=== PATIENT | female | born 1940 | race Caucasian/White ===

== ENCOUNTER 2016-12-07 16:06 | Emergency (ER) | payer MEDICARE ==
[~2016-12-07 16:06] MED LIST: ASPI-973 PO; ATEN25TA PO; CHOL10008 PO; CYCL10TA9 PO; ERGO500050 PO; GABA-502 PO; KLO1T PO; LEVO137T2 PO; LOVA20TA PO; MULT-1018 PO; NITR0.4T SL; OXYC1TAB24 PO; SERT100T PO; VITA400C64 PO; WARF5TAB7 PO
[2016-12-07 16:20] VITALS: BP 105/70; PULSE 66; RESP 14; O2SAT 95
--- NOTE | 2016-12-07 16:37 | DRSVH ---
PROCEDURE: CT BRAIN WITHOUT CONTRAST ([id number]) INDICATIONS: FALL ON COUMADIN TECHNIQUE: Noncontrast 4.5 mm thick angled axial sections acquired from the foramen magnum to the vertex, with c oronal reformats. COMPARISON: [facility], CT, CT BRAIN WO CON, 09/17/2016, 18:11. [facility], CT, CT BRAIN WO CON, 04/29/2016, 13:35. [facility], CT, CT BRAIN WO CON, 03/23/2016, 14:5 4. FINDINGS: Image quality: Excellent. CSF spaces: Basal cisterns are patent. No extra-axial fluid collections. The ventricles are symmet katelynn in size and shape. Brain: No intracranial bleeds or masses. There is cerebral volume loss for age, with resultant vent ricular and sulcal prominence. There are periventricular and deep white matter chronic small vessel ischemic changes. There is intracranial internal carotid artery atherosclerosis. Skull and face: Calvarium and visualized facial bones appear intact, without suspicious lesions. Sinuses: Visualized sinuses and mastoids are clear. IMPRESSION: No acute intracranial abnormality. Dictated by: Bryant Mckenna M.D. on 12/07/2016 at 16:35 Approved by: Bryant Mckenna M.D. on 12/07/2016 at 16:36
[2016-12-07] MEDS ORDERED: fentaNYL-PF 50 mCg/mL 2 mL Inj IVPUSH ONE (16:45)
[2016-12-07 16:47] LABS: BASOPHILS % (AUTO) 0.5 % (0-3); EOSINOPHILS % (AUTO) 2.7 % (0-5); MONOCYTES % (AUTO) 7.5 % (4-12); Mean Corpuscular Hemoglobin 29.4 pg (27.0-35.0); Mean Corpuscular Volume 90.1 fL (81-100); NEUTROPHILS % (AUTO) 55.2 % (40-74); Platelet Count 235 bil/L (150-400)
[2016-12-07 17:08] LABS: INR 2.49 ratio
--- NOTE | 2016-12-07 17:23 | DRSVH ---
PROCEDURE: CT CERVICAL SPINE WITHOUT CONTRAST ([id number]) INDICATIONS: trauma TECHNIQUE: Noncontrast 3 mm thick sections acquired from the skull base to the T4 level. Sagittal and coronal r eformats were then constructed. For radiation dose reduction, the following was used: automated exp osure control, adjustment of mA and/or kV according to patient size. COMPARISON: [facility], CT, CT CERVICAL SPINE WO CON, 04/29/2016, 13:35. FINDINGS: Image quality: Excellent. Bones: No acute fractures or dislocations. There is a mild superior endplate compression deformity at T3 redemonstrated. There is moderate disk space narrowing at C5-C6 with endplate sclerosis or oste ophytosis. Multilevel facet joint arthropathy is noted throughout the cervical spine. There is modera te degeneration at the atlantoaxial joint. Visualized superior ribs are intact. Soft tissues: Prevertebral soft tissues are normal in thickness. No paravertebral hematomas. No ap ical pneumothoraces. There is aneurysmal dilatation of the visualized ascending thoracic aorta measu ring up to 4.3 cm, similar in size compared to the prior study. IMPRESSION: 1. No acute fracture or subluxation. 2. Multilevel degenerative changes throughout the cervical spine most prominent at C5-C6. 3. Aneurysmal dilatation of the ascending thoracic aorta appears similar to the prior study. Dictated by: Oscar Mendoza M.D. on 12/07/2016 at 17:10 Approved by: Oscar Mendoza M.D. on 12/07/2016 at 17:17
[2016-12-07 17:26] LABS: Magnesium 2.1 mg/dL (1.6-2.6)
--- NOTE | 2016-12-07 17:44 | ED.REPORT ---
HPI-Trauma Multiple Date of Service Dec 07, 2016 ED Provider: Austin Zavala MD 76 year old female with a history of CVA and paroxysmal atrial fibrillation, anticoagulated on warfarin presents to the ER via EMS accompanied by her granddaughter complaining of headache status post syncopal ground level fall while at her appointment with her lead engineer, Dr. Rivera, just prior to arrival. Associated symptoms include nausea and vomiting since the fall. Patient denies any neck pain, or other injuries secondary to the fall. Zofran administered by EMS en route. Nursing Notes Stated Complaint: GLF ON COUMADIN Chief Complaint: Multiple Trauma/Fall Nursing Notes Reviewed: Yes Allergies: Coded Allergies: Sulfa (Sulfonamide Antibiotics) (Verified Allergy, Severe, Rash, 09/01/16) morphine (Verified Allergy, Severe, big red hive, 09/01/16) Scheduled Aspirin (Aspirin) 81 Mg Tablet 81 MG PO DAILY Atenolol (Atenolol) 25 Mg Tablet 12.5 MG PO HS Cholecalciferol (Vitamin D3) (Vitamin D3) 1,000 Unit Tab.chew 1,000 UNIT PO DAILY Clonazepam (Clonazepam) 1 Mg Tab 1 MG PO BID Ergocalciferol (Vitamin D2) (Drisdol) 50,000 Unit Capsule 50,000 UNIT PO Mondays Gabapentin (Gabapentin) 300 Mg Capsule 300 MG PO TID Levothyroxine (Levothyroxine) 137 Mcg Tablet 137 MCG PO HS Lovastatin (Lovastatin) 20 Mg Tablet 20 MG PO HS Multivitamin (Multi Vitamin Daily) 1 Each Tablet 1 EACH PO DAILY Sertraline HCl (Zoloft) 100 Mg Tablet 200 MG PO QAM Vitamin E Mixed (Vitamin E) 400 Unit Capsule 400 UNIT PO DAILY Warfarin Sodium (Warfarin Sodium) 5 Mg Tablet 5 MG PO ,,, Fr, Sa,Jasso Warfarin Sodium (Warfarin Sodium) 5 Mg Tablet 2.5 MG PO Tuesday Warfarin Sodium (Warfarin Sodium) 5 Mg Tablet 5 MG PO DAILY Scheduled PRN Cyclobenzaprine (Cyclobenzaprine) 10 Mg Tablet 10 MG PO TID PRN PRN Spasm Nitroglycerin SL (Nitrostat) 0.4 Mg Tab.subl 0.4 MG SL Q5MIN PRN PRN For Chest Pain oxyCODONE-Acetaminophen 5-325 mg (oxyCODONE-Acetaminophen 5-325 mg) 1 Each Tablet 1 TAB PO Q6H PRN PRN For Pain General Time Seen by Provider: 16:10 Chief Complaint Head pain/injury, Loss of consciousness Hx Obtained From: Patient Arrived By: Ambulance Onset Occurred: Just prior to arrival Symptom Duration: Since onset Caused by: Fall from (Ground level) Location: : Head Quality: Painful Severity: Current: Moderate Severity: Maximum: Moderate Associated with: Reports: Nausea, Vomiting Risk-Trauma Multiple Head CT Imaging Inclusion Criteria: GCS of 14 OR 15 Patient Presents WITH: Loss of Conciousness Non Contrast CT Indicated For: >/= 60 yrs Age Headache Vomiting WITH Loss of Conciousness RF Statements: Risk factors reviewed Janneth Coma Score > Age 5 Eye Opening: Open spontaneously (4) Verbal Response: Oriented (5) Motor Response: Obeys commands (6) Janneth Coma Score: 15 Past Medical History Past Medical History 1. Migraine headaches. 2. Paroxysmal atrial fibrillation on Warfarin 3. Fibromyalgia. 4. Hypertension. 5. Dyslipidemia. 6. History of heart block reported in the past. 7. Panic attacks. 8. Wuw-ihcjcav-eoytxynxu type 2 diabetes. 9. Osteoarthritis. 10. Syncope. 11. Shingles. 12. Basal cell carcinoma. 13. Thyroid cancer status post thyroidectomy. 14. Bilateral hearing loss. 15. T3 anterior compression fracture. 16. Angina 17. TIA Reports: Cancer Past Surgical History 1. Multiple knee surgeries bilaterally including bilateral knee replacement. 2. Status post appendectomy. 3. Status post cholecystectomy. 4. History of volvulus requiring exploratory laparotomy and lysis of adhesions. 5. Status post ventral hernia repair. 6. Status post ORIF of right femur. 7. Bladder nerve stimulator. Reports: Appendectomy, Cholecystectomy Family History Noncontributory Smoking History Never Smoker Social History Alcohol Use: Denies alcohol use Drug Use: Denies drug use Other Social History: Good social support, Local resident Ambulatory Status Independent Review of Systems Constitutional: Denies: Chills, Fever Respiratory: Denies: Non-productive cough, Shortness of breath Cardiovascular: Denies: Chest pain GI: Reports: Vomiting, Denies: Abdominal pain, Nausea Musculoskeletal: Denies: Back pain, Extremity pain, Joint pain, Lumbar pain, Neck pain, Thoracic pain Skin: Denies Diaphoresis Neurologic: Reports: Dizziness, Lightheaded, Syncope Complete sys rev & neg: except as marked. Physical Exam Physical Exam Notes: Initial Vital Signs Vital Signs (First) Date Time Temp Pulse Resp B/P Pulse Ox O2 Delivery O2 Flow Rate FiO2 12/07/16 16:20 36.6 66 14 105/70 95 Room Air Initial VS: Reviewed ENT: Mucous membranes moist, Conjunctiva normal, No scleral icterus Skin: Warm, Dry, No cyanosis Psychiatric: Mood/affect normal, Behavior normal, Normal thought content General/Constitutional: Awake, Alert, Well developed, Well nourished Head / Eyes: Atraumatic, Normocephalic, PERRL, No periorbital swelling, Eyelids NL Neck: Atraumatic, Supple, Full range of motion, No swelling, Non-tender, No midline vertebral tend, No masses, No crepitus, No JVD, No tracheal deviation Respiratory / Chest: Atraumatic, Breath sounds NL, Breath sounds = bilat, No respiratory distress, No rales, No rhonchi, No wheezing, No stridor, No chest tenderness, No chest wall deformity, No crepitus Cardiovascular: Heart rate NL, Regular rhythm, Heart sounds NL, Cap refill not delayed, Peripheral circulation NL Abdomen: Atraumatic, Soft, Non-tender, No guarding, No rebound, No distention Back: Atraumatic, Inspection NL, Non-tender, No midline vertebral tend, No paraspinal tenderness, No CVA tenderness Neurologic: Oriented X3, Speech NL, No motor deficits, No sensory deficits No pronator drift Strength 5/5 upper extremities, bilateral Strength 5/5 lower extremities, bilateral Lower Extremity / Pelvis / MS: Full range of motion, No deformity, Neurologic intact, Vascular intact Bilateral knee replacement scars. Interpretation & Diagnostics Lab Results Interpretation Result Diagram: 12/07/16 1637 12/07/16 1637 Test 12/07/16 16:37 White Blood Count 8.0th/mm3 (3.8-10.1) Red Blood Count 4.73mil/mm3 (3.90-5.20) Hemoglobin 13.9g/dL (12.0-15.6) Hematocrit 42.6% (35.0-46.0) Mean Corpuscular Volume 90.1fL (81-100) Mean Corpuscular Hemoglobin 29.4pg (27.0-35.0) Mean Corpuscular Hemoglobin Concent 32.6% (32.0-37.0) Red Cell Distribution Width 15.2% (12.3-15.4) Platelet Count 235bil/L (150-400) Neutrophils (%) (Auto) 55.2% (40-74) Lymphocytes (%) (Auto) 33.9% (14-46) Monocytes (%) (Auto) 7.5% (4-12) Eosinophils (%) (Auto) 2.7% (0-5) Basophils (%) (Auto) 0.5% (0-3) Prothrombin Time 27.1sec (8.1-12.5) Prothromb Time International Ratio 2.49ratio Sodium Level 139mEq/L (134-144) Potassium Level 4.7mEq/L (3.5-5.2) Chloride Level 102mEq/L (97-108) Carbon Dioxide Level 23mmol/L (18-29) Blood Urea Nitrogen 19mg/dL (8-27) Creatinine 1.02mg/dL (0.57-1.00) Estimat Glomerular Filtration Rate 75mL/min (>59) Glucose Level 94mg/dL (60-99) Calcium Level 8.5mg/dL (8.5-10.1) Magnesium Level 2.1mg/dL (1.6-2.6) Total Bilirubin 0.2mg/dL (0.0-1.2) Aspartate Amino Transf (AST/SGOT) 27U/L (0-50) Alanine Aminotransferase (ALT/SGPT) 20U/L (0-32) Alkaline Phosphatase 91U/L (25-165) Total Protein 6.9g/dL (6.4-8.4) Albumin 4.1g/dL (3.4-5.0) Hold So Top Tube Received (Received) ECG Interpretation ECG Interpretation: Sinus rhythm, rate 62 Left axis deviation No ST segment changes Diffuse T wave flattening When compared to ECG dated 09/17/2016 no acute changes present Time: 17:52 Interpreted by: ED physician CT Head Interpretation IMPRESSION: No acute intracranial abnormality. Dictated by: Bryant Mckenna M.D. on 12/07/2016 at 16:35 Approved by: Bryant Mckenna M.D. on 12/07/2016 at 16:36 Study: Head CT no contrast Interpretation / Wet Read by: Interpret - Radiologist CT C-Spine Interpretation IMPRESSION: 1. No acute fracture or subluxation. 2. Multilevel degenerative changes throughout the cervical spine most prominent at C5-C6. 3. Aneurysmal dilatation of the ascending thoracic aorta appears similar to the prior study. Dictated by: Oscar Mendoza M.D. on 12/07/2016 at 17:10 Approved by: Oscar Mendoza M.D. on 12/07/2016 at 17:17 Study type: CT no contrast Interpretation / Wet Read by: Interpret - Radiologist Re-Eval/Medical Decision Med Decision/Clinical Course In summary, the patient is a 76-year-old female with a history of atrial fibrillation, on Coumadin, who presents to the emergency department after a ground-level fall in the setting of a syncopal event that is suggestive of orthostatic hypotension. Here in the emergency department the patient is afebrile stable vital signs and nonfocal neurologic examination. She has clinically positive orthostatics. She complained of headache and nausea and received Zofran as well as fentanyl. Laboratory studies obtained as below: CBC and CMP unremarkable INR therapeutic at 2.49 CT scan of the head and cervical spine demonstrated no evidence of intracranial hemorrhage or focal bony deformity. Her C-spine was cleared. Serial neurologic assessments remains nonfocal. She reported feeling improved. Orthostatic symptoms resolved after receiving IV fluids. She reported that she had not been eating and drinking as much as she showed it did not eat breakfast prior to her event this morning. She was advised to stand up slowly and carefully and make sure to drink adequate fluids. I am reassured by her workup thus far. I feel that she is appropriate for discharge home. Follow-up and return precautions were reviewed detail with the patient as well as family members and they verbalized understanding and agreeable with the plan. She was discharged in stable condition. Re-Evaluation/Progress : Time of Eval: 17:54 Re-Evaluation/Progress Note: Discussed lab and radiology results and plan to discharge. Patient understands and agrees to the plan. Return precautions given. All other questions addressed. Counseled Regarding: Diagnosis, Lab results, Need for follow-up, When/why to return to ED Discharge & Departure Impression: Primary Impression: Fall from ground level Additional Impressions: Syncope Syncope type: unspecified Qualified Code: R55 - Syncope and collapse Head trauma Encounter type: initial encounter Qualified Code: S09.90XA - Unspecified injury of head, initial encounter Anticoagulated on Coumadin Headache Headache type: unspecified Headache chronicity pattern: unspecified pattern Intractability: not intractable Qualified Code: R51 - Headache Nausea Disposition: Home Discharge Condition All VS Reviewed: Yes Condition: Stable Additional Instructions: Thank you for seeking care at emergency room. Our primary goal today in the ED was to evaluate you for any life-threatening conditions. Your evaluation was reassuring. You should follow-up with your primary doctor this week. You should return to the ED immediately if you develop worsening headache, worsening vomiting, weakness, loss of consciousness, confusion, or any other concerning signs or symptoms. Thank you for letting us partake in your care today. Referrals: Emma Crump (PCP) Nadir Rivera MD Attestation Portions of this note were transcribed by Anais Linda. I, Dr. Zavala, personally performed the history, physical exam and medical decision-making; I reviewed and confirmed the accuracy of the information in the transcribed note. Signed by: Judith Alicia, 12/07/2016 and 18:03 copies to: Emma Crump; Nadir Rivera MD, Beck O MD Dec 07, 2016 17:44 ANAIS LINDA Dec 07, 2016 18:01
[2016-12-07 18:04] VITALS: BP 105/70; PULSE 66; RESP 14; O2SAT 95
== END 2016-12-07 18:05 | disposition home or self-care (01) ==
LOC: SED 16:06 → EDBD 16:06 → SED 18:05
DX: J44.0 Chronic obstructive pulmonary disease with (acute) lower respiratory infection (principal); J18.9 Pneumonia, unspecified organism; J84.10 Pulmonary fibrosis, unspecified; I10 Essential (primary) hypertension; I50.9 Heart failure, unspecified; Z86.718 Personal history of other venous thrombosis and embolism; Z90.49 Acquired absence of other specified parts of digestive tract; Z87.891 Personal history of nicotine dependence; Z79.01 Long term (current) use of anticoagulants
CPT/HCPCS: 36415; 70450; 72125; 80053; 83735; 85025; 85610; 93005; 96365; 96367; 96375; 99291; 99292; G0463; J3010

== ENCOUNTER 2017-03-25 15:50 | Emergency (ER) | payer MEDICARE ==
[~2017-03-25] VITALS: Ht 175.3 cm; Wt 111.4 kg
[2017-03-25 15:54] VITALS: BP 104/73; PULSE 66; RESP 17; O2SAT 96
--- NOTE | 2017-03-25 17:31 | ED.REPORT ---
HPI-General Illness Date of Service March 25, 2017 ED Provider: Austin Zavala MD Pt is a 77 y/o female anticoagulated on Warfarin w/ a hx of paroxysmal A-fib, migraines, HTN, hyperlipidemia, NIDDM, TIA, [place], thyroid CA s/p thyroidectomy presenting to the ED with family c/o generalized weakness onset about 5 days ago. She c/o associated SOB, fatigue, dyspnea on exertion, nausea, vomiting, cold sweats, mild abdominal pain, BRUNSON, diarrhea for 2 months. Her focused complaints after all of these symptoms were reported is generalized weakness and SOB. She has experienced a few falls recently without head injury or change in LOC. Pt denies CP, focal numbness or weakness, dysuria. She was at the urology clinic today and was found to be "mildly hypotensive" and was recommended to come here. There has been no recent change in medications. She denies hx of DVT, PE, recent surgeries, recent periods of immobilization. She lives alone and family reports she is not safe to go home. Nursing Notes Stated Complaint: SOB/DIZZY Chief Complaint: Dysrhythmia/Cardiac Nursing Notes Reviewed: Yes Allergies: Coded Allergies: Sulfa (Sulfonamide Antibiotics) (Verified Allergy, Severe, Rash, 09/01/16) morphine (Verified Allergy, Severe, big red hive, 09/01/16) Scheduled Aspirin (Aspirin) 81 Mg Tablet 81 MG PO DAILY Atenolol (Atenolol) 25 Mg Tablet 12.5 MG PO HS Cholecalciferol (Vitamin D3) (Vitamin D3) 1,000 Unit Tab.chew 1,000 UNIT PO DAILY Clonazepam (Clonazepam) 1 Mg Tab 1 MG PO BID Ergocalciferol (Vitamin D2) (Drisdol) 50,000 Unit Capsule 50,000 UNIT PO Mondays Gabapentin (Gabapentin) 300 Mg Capsule 300 MG PO TID Levothyroxine (Levothyroxine) 137 Mcg Tablet 137 MCG PO HS Lovastatin (Lovastatin) 20 Mg Tablet 20 MG PO HS Multivitamin (Multi Vitamin Daily) 1 Each Tablet 1 EACH PO DAILY Sertraline HCl (Zoloft) 100 Mg Tablet 200 MG PO QAM Vitamin E Mixed (Vitamin E) 400 Unit Capsule 400 UNIT PO DAILY Warfarin Sodium (Warfarin Sodium) 5 Mg Tablet 5 MG PO ,,, Fr, Sa,Jasso Warfarin Sodium (Warfarin Sodium) 5 Mg Tablet 2.5 MG PO Tuesday Warfarin Sodium (Warfarin Sodium) 5 Mg Tablet 5 MG PO DAILY Scheduled PRN Cyclobenzaprine (Cyclobenzaprine) 10 Mg Tablet 10 MG PO TID PRN PRN Spasm Nitroglycerin SL (Nitrostat) 0.4 Mg Tab.subl 0.4 MG SL Q5MIN PRN PRN For Chest Pain oxyCODONE-Acetaminophen 5-325 mg (oxyCODONE-Acetaminophen 5-325 mg) 1 Each Tablet 1 TAB PO Q6H PRN PRN For Pain General Time Seen by MD: 17:28 Chief Complaint Multip medical complaints Hx Obtained From: Patient Arrived By: Walk-in Sudden in Onset?: No Onset Occurred: 5 days ago Symptom Duration: Since onset Location: : Abdomen: Head Quality: Painful Severity: Current: Mild Severity: Maximum: Mild Similar Sx Previous: No Past Medical History Past Medical History 1. Migraine headaches. 2. Paroxysmal atrial fibrillation on Warfarin 3. Fibromyalgia. 4. Hypertension. 5. Dyslipidemia. 6. History of heart block reported in the past. 7. Panic attacks. 8. Iop-bhhoppy-mdjlmnknh type 2 diabetes. 9. Osteoarthritis. 10. Syncope. 11. Shingles. 12. Basal cell carcinoma. 13. Thyroid cancer status post thyroidectomy. 14. Bilateral hearing loss. 15. T3 anterior compression fracture. 16. Angina 17. TIA 18. Hard of hearing Past Surgical History 1. Multiple knee surgeries bilaterally including bilateral knee replacement. 2. Status post appendectomy. 3. Status post cholecystectomy. 4. History of volvulus requiring exploratory laparotomy and lysis of adhesions. 5. Status post ventral hernia repair. 6. Status post ORIF of right femur. 7. Bladder nerve stimulator. Reports: Appendectomy, Cholecystectomy Family History Noncontributory Smoking History Never Smoker Social History Alcohol Use: Denies alcohol use Drug Use: Denies drug use Other Social History: Good social support, Local resident Ambulatory Status Walker Review of Systems Full Review of Systems Constitutional: Reports: Chills, Fatigue, Denies: Fever Respiratory: Reports: Dyspnea on exertion, Shortness of breath Cardiovascular: Denies: Chest pain GI: Reports: Abdominal pain, Nausea, Vomiting Female: Denies: Dysuria, Urinary frequency Neurologic: Reports: Headache, Denies: Confusion, Focal weakness, Numbness, Slurred speech, Syncope, Unable to speak Complete sys rev & neg: except as marked. Physical Exam Vital Signs Vital Signs Date Time Temp Pulse Resp B/P Pulse Ox O2 Delivery O2 Flow Rate FiO2 03/25/17 18:13 68 17 115/71 96 Room Air 03/25/17 15:54 66 17 104/73 96 Room Air Initial VS: Reviewed, Vital signs normal Head / Eyes: Atraumatic, Normocephalic, PERRL ENT: Mucous membranes moist, Conjunctiva normal, No scleral icterus Neck: Supple, Full range of motion Extremities: Vascular intact, Neuro intact, No swelling, No tenderness Psychiatric: Mood/affect normal, Behavior normal, Normal thought content General/Constitutional: Awake, Alert, No acute distress, Cooperative, Not toxic appearing Hard of hearing Respiratory / Chest: Atraumatic, Breath sounds NL, Breath sounds = bilat, No respiratory distress, No rales, No rhonchi, No wheezing, No retractions, No stridor, No chest tenderness, No chest wall deformity, No crepitus Well healed scar from previous thyroid surgery Cardiovascular: Heart rate NL, Heart sounds NL, No gallop, No murmurs, No rubs , Cap refill not delayed, Peripheral circulation NL Heart Rate / Rhythm: Positive: Irregular rhythm Abdomen: Atraumatic, Soft, Non-tender, No guarding, No rebound, No distention, No palpable mass Neurologic: Oriented X3, Speech NL, No motor deficits, No sensory deficits, CN II - XII intact, Cerebellar NL, Memory NL Interpretation & Diagnostics Lab Results Interpretation Result Diagram: 03/25/17 1750 03/25/17 1750 Test 03/25/17 17:50 03/25/17 19:16 White Blood Count 10.0th/mm3 (3.8-10.1) Red Blood Count 4.87mil/mm3 (3.90-5.20) Hemoglobin 14.5g/dL (12.0-15.6) Hematocrit 43.9% (35.0-46.0) Mean Corpuscular Volume 90.1fL (81-100) Mean Corpuscular Hemoglobin 29.8pg (27.0-35.0) Mean Corpuscular Hemoglobin Concent 33.0% (32.0-37.0) Red Cell Distribution Width 15.6% (12.3-15.4) Platelet Count 270bil/L (150-400) Neutrophils (%) (Auto) 56.1% (40-74) Lymphocytes (%) (Auto) 30.6% (14-46) Monocytes (%) (Auto) 7.7% (4-12) Eosinophils (%) (Auto) 3.4% (0-5) Basophils (%) (Auto) 1.9% (0-3) Prothrombin Time 18.8sec (8.1-12.5) Prothromb Time International Ratio 1.74ratio Sodium Level 137mEq/L (134-144) Potassium Level 4.4mEq/L (3.5-5.2) Chloride Level 97mEq/L (97-108) Carbon Dioxide Level 22mmol/L (18-29) Blood Urea Nitrogen 27mg/dL (8-27) Creatinine 1.09mg/dL (0.57-1.00) Estimat Glomerular Filtration Rate 70mL/min (>59) Glucose Level 116mg/dL (60-99) Calcium Level 9.4mg/dL (8.5-10.1) Magnesium Level 1.9mg/dL (1.6-2.6) Total Bilirubin 0.4mg/dL (0.0-1.2) Aspartate Amino Transf (AST/SGOT) 22U/L (0-50) Alanine Aminotransferase (ALT/SGPT) 14U/L (0-32) Alkaline Phosphatase 103U/L (25-165) Troponin T < 0.010ug/L (0.0-0.011) Total Protein 7.8g/dL (6.4-8.4) Albumin 4.3g/dL (3.4-5.0) Urine Color Yellow (YELLOW) Urine Appearance Clear (CLEAR,HAZY) Urine pH 5.0 (5.0-8.0) Urine Specific [place] 1.025 (1.003-1.035) Urine Protein Negativemg/dL (NEG,TRACE) Urine Glucose (UA) Negativemg/dL (NEGATIVE) Urine Ketones Tracemg/dL (NEGATIVE) Urine Occult Blood Negative (NEGATIVE) Urine Nitrite Negative (NEGATIVE) Urine Bilirubin Negative (NEGATIVE) Urine Urobilinogen Normalmg/dL (NORMAL) Urine Leukocyte Esterase Negative (NEGATIVE) Urine RBC 0-2/hpf (0-2) Urine WBC 0-5/hpf (0-5) Urine Epithelial Cells Many/hpf (NONE-MOD) Urine Crystals None seen (NONE SEEN) Urine Bacteria Few/hpf (NONE-FEW) Urine Hyaline Casts Occasional/lpf (NONE) Urine Granular Casts None seen (NONE SEEN) Urine Waxy Casts None seen (NONE SEEN) Urine Red Blood Cell Casts None seen (NONE SEEN) Urine White Blood Cell Casts None seen (NONE SEEN) Urine Mucus Present (None Seen) Urine Trichomonas None seen (NONE SEEN) Urine Yeast None (NONE SEEN) Urinalysis Comment None Urine Culture Reflexed Not indicated ECG Interpretation ECG Interpretation: Sinus rhythm rate 63 LAD Borderline prolonged VA interval Compared to prior dated 12/07/16, no acute changes present Time: 17:59 Interpreted by: ED physician Normal ECG Interpretation: No acute ischemic changes X-Ray Chest Interpretation Chest Xray Interpretation: IMPRESSION: No acute cardiopulmonary disease process. Dictated by: Soniya Schneider MD, PhD on 03/25/2017 at 18:22 Approved by: Soniya Schneider MD, PhD on 03/25/2017 at 18:23 View: Portable, 1 view Interpretation / Wet Read by: Interpret - Radiologist CT Head Interpretation IMPRESSION: No acute intracranial disease process. Dictated by: Soniya Schneider MD, PhD on 03/25/2017 at 19:55 Approved by: Soniya Schneider MD, PhD on 03/25/2017 at 19:59 Study: Head CT no contrast Interpretation / Wet Read by: Interpret - Radiologist Re-Eval/Medical Decision Med Decision/Clinical Course Pt is a 77 y/o female anticoagulated on Warfarin w/ a hx of paroxysmal A-fib, migraines, HTN, hyperlipidemia, NIDDM, TIA, [place], thyroid CA s/p thyroidectomy presenting to the ED with family c/o generalized weakness onset about 5 days ago. She c/o associated SOB, fatigue, dyspnea on exertion, nausea, vomiting, cold sweats, mild abdominal pain, BRUNSON, diarrhea for 2 months. Her focused complaints after all of these symptoms were reported is generalized weakness and SOB. She has experienced a few falls recently without head injury or change in LOC. Pt denies CP, focal numbness or weakness, dysuria. She was at the urology clinic today and was found to be "mildly hypotensive" and was recommended to come here. There has been no recent change in medications. She denies hx of DVT, PE, recent surgeries, recent periods of immobilization. She lives alone and family reports she is not safe to go home. Here in the emergency department the patient is afebrile stable vital signs and examination as above. Meds given: Zofran, Toradol, Tylenol, IV fluids. Thereafter patient was reevaluated and she reported significant symptom improvement. Labs notable as below: CBC: Unremarkable CMP: Unremarkable Troponin: negative UA: Unremarkable CXR: Obtained, reviewed and interpreted by myself shows no evidence of infiltrates, effusions or pneumothorax. Cardiac and mediastinal silhouette normal. No bony or soft tissue abnormalities. Head CT: No acute intracranial process After evaluation as above the patient reported significant symptom improvement. My initial plan was for admission as I had some concern about the patient's safety at home however after discussing further patient does not want to be admitted and family members will stay at home with the patient to assist her. She has a motorized wheelchair and walker and feels comfortable going home. The cause for the patient's generalized weakness remains unclear. I see no evidence at this time of acute coronary syndrome, urinary tract infection, pneumonia, electrolyte abnormality or other immediately concerning cause. EKG does not demonstrate any acute changes that would account for her symptoms. Patient remains with stable vital signs and in no apparent distress. I feel she is appropriate for outpatient management. Prior to discharge follow-up and return precautions were reviewed in detail with the patient who verbalized understanding and agreement with the plan. The patient was discharged in stable condition. Time of Eval: 20:06 Patient Status: Condition improved, Moderate relief Re-Evaluation/Progress Note: Pt rechecked. Able to eat without nausea or vomiting. Feeling better. The patient's family will stay with her at her home until she is feeling better. Informed pt of plan for treatment. Pt understands and agrees with plan for treatment. F/U instructions and RTER warnings given. All questions addressed. Counseled Regarding: Diagnosis, Lab results, Need for follow-up, When/why to return to ED Discharge & Departure Primary Impression: Generalized weakness Additional Impressions: Fatigue Fatigue type: unspecified Qualified Code: R53.83 - Other fatigue History of thyroid cancer Anticoagulated on Coumadin History of atrial fibrillation Disposition: Home Discharge Condition All VS Reviewed: Yes Condition: Stable Additional Instructions: Thank you for seeking care at the emergency room. It is difficult for us to make definitive diagnoses in the ED but we believe that you are experiencing weakness of uncertain cause. Our primary goal today in the ED was to evaluate you for any life-threatening conditions. Your evaluation was reassuring. Your labs, urine analysis, EKG, chest x-ray, and head CT scan were all normal today. You will be discharged with a prescription for Zofran. Take this as needed for nausea or vomiting. Make sure you stay well hydrated and continue to eat regularly. You should follow-up with your primary doctor on Tuesday. Call to make an appointment. You should return to the ED immediately if you develop fevers, persistent vomiting, shortness of breath, worsening chest pain, lightheadedness, worsening weakness or any other concerning signs or symptoms. Thank you for letting us partake in your care today. Referrals: Emma Crump (PCP) Scribe Attestation Portions of this note were transcribed by Juan Robles. I, Dr. Zavala personally performed the history, physical exam and medical decision-making; I reviewed and confirmed the accuracy of the information in the transcribed note. Signed by Judith Fang, 03/25/17 - 1800 copies to: Emma Crump Beck O MD March 25, 2017 17:31 JUAN ROBLES March 25, 2017 17:56
[2017-03-25 18:04] LABS: BASOPHILS % (AUTO) 1.9 % (0-3); EOSINOPHILS % (AUTO) 3.4 % (0-5); MONOCYTES % (AUTO) 7.7 % (4-12); Mean Corpuscular Hemoglobin 29.8 pg (27.0-35.0); Mean Corpuscular Volume 90.1 fL (81-100); NEUTROPHILS % (AUTO) 56.1 % (40-74); Platelet Count 270 bil/L (150-400)
[2017-03-25 18:13] VITALS: BP 115/71; PULSE 68; RESP 17; O2SAT 96
[2017-03-25 18:24] LABS: TROPONIN T < 0.010 ug/L (0.0-0.011)
--- NOTE | 2017-03-25 18:24 | DRSVH ---
PROCEDURE: X-RAY CHEST ONE VIEW, PORTABLE ([id number]) INDICATIONS: a-fib, weakness TECHNIQUE: One view of the chest was acquired. COMPARISON: [facility], CR, XR CHEST 1VW (PORTABLE), 09/17/2016, 18:01. FINDINGS: Surgical changes and devices: Surgical clips in the thyroid fossa. 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 Lungs and pleura: No pleural effusions or pneumothorax. Lungs are clear. Mediastinum: Mediastinal contours appear normal. Heart size is normal. Bones and chest wall: No suspicious bony lesions. Overlying soft tissues appear unremarkable. IMPRESSION: No acute cardiopulmonary disease process. Dictated by: Soniya Schneider MD, PhD on 03/25/2017 at 18:22 Approved by: Soniya Schneider MD, PhD on 03/25/2017 at 18:23
[2017-03-25 18:34] LABS: Magnesium 1.9 mg/dL (1.6-2.6)
[2017-03-25] MEDS ORDERED: 0.9% Sodium Chloride 1,000 ML IV ONE (18:45)
[2017-03-25] MEDS ORDERED: Ondansetron 2 mg/mL 2 mL Inj IVPUSH ONE (18:45)
[2017-03-25] MEDS ORDERED: Alum-Mag Hydrox-Simeth 30 mL Suspension PO PRN (19:30)
[2017-03-25] MEDS ORDERED: Ondansetron 2 mg/mL 2 mL Inj IVPUSH PRN (19:30)
[2017-03-25 19:44] LABS: APPEARANCE,URINE CLEAR (CLEAR,HAZY); COLOR,URINE YELLOW (YELLOW); OCCULT BLOOD,URINE NEGATIVE (NEGATIVE); UROBILINOGEN,URINE NORMAL (NORMAL)
--- NOTE | 2017-03-25 20:00 | DRSVH ---
PROCEDURE: CT BRAIN WITHOUT CONTRAST ([id number]) INDICATIONS: Acute mental status changes. TECHNIQUE: Noncontrast 4.5 mm thick angled axial sections acquired from the foramen magnum to the vertex, with c oronal reformats. COMPARISON: [facility], CT, BRAIN W/O CONTRAST, 01/16/2012, 13:17. [facility] l, CT, BRAIN W/O CONTRAST, 09/24/2013, 13:35. [facility], CT, CT BRAIN WO CON, 12/07/2016 , 16:27. [facility], CT, CT ANGIO BRAIN AND NECK, 09/01/2016, 14:04. [facility] [place], CT, BRAIN (TPA), 09/01/2016, 9:49. [facility], CT, CT BRAIN WO CON, 04/29/2016, 13: 35. [facility], CT, CT BRAIN WO CON, 03/23/2016, 14:54. [facility], MR, MR B RAIN WO CON, 12/29/2015, 9:07. [facility], CT, BRAIN W/O CONTRAST, 02/19/2015, 6:04. [facility], CT, BRAIN W/O CONTRAST, 02/18/2015, 19:52. FINDINGS: Image quality: Excellent. CSF spaces: Basal cisterns are patent. No extra-axial fluid collections. The ventricles are symmet katelynn in size and shape. Brain: No intracranial bleeds or masses. There is cerebral volume loss for age, with resultant vent ricular and sulcal prominence. There are periventricular and deep white matter chronic small vessel ischemic changes. There is intracranial internal carotid artery and vertebral artery atherosclerosis . Skull and face: Calvarium and visualized facial bones appear intact, without suspicious lesions. Sinuses: Visualized sinuses and mastoids are clear. IMPRESSION: No acute intracranial disease process. Dictated by: Soniya Schneider MD, PhD on 03/25/2017 at 19:55 Approved by: Soniya Schneider MD, PhD on 03/25/2017 at 19:59
[2017-03-25 20:06] LABS: INR 1.74 ratio
[2017-03-25 21:03] VITALS: BP 121/73; PULSE 69; RESP 15; O2SAT 96
== END 2017-03-25 21:05 | disposition home or self-care (01) ==
LOC: SED 15:50
DX: R53.1 Weakness (principal); R53.83 Other fatigue; R06.02 Shortness of breath; R11.2 Nausea with vomiting, unspecified; R10.9 Unspecified abdominal pain; R19.7 Diarrhea, unspecified; I11.9 Hypertensive heart disease without heart failure; E11.59 Type 2 diabetes mellitus with other circulatory complications; I48.0 Paroxysmal atrial fibrillation; I25.2 Old myocardial infarction; M79.7 Fibromyalgia; E78.5 Hyperlipidemia, unspecified; Z86.73 Personal history of transient ischemic attack (TIA), and cerebral infarction without residual deficits; Z85.850 Personal history of malignant neoplasm of thyroid; Z90.49 Acquired absence of other specified parts of digestive tract; Z91.81 History of falling; Z79.01 Long term (current) use of anticoagulants; Z79.82 Long term (current) use of aspirin; Z88.2 Allergy status to sulfonamides; Z88.5 Allergy status to narcotic agent
CPT/HCPCS: 36415; 70450; 71010; 80053; 81000; 83735; 84484; 85025; 85610; 93005; 96374; 96375; 99285; J1885; J2405; J7030

== ENCOUNTER 2017-03-27 12:42 | Emergency (ER) | payer MEDICARE ==
[~2017-03-27] VITALS: Ht 172.7 cm; Wt 110.5 kg
[2017-03-27 12:46] VITALS: BP 109/66; PULSE 62; RESP 20; O2SAT 92
--- NOTE | 2017-03-27 12:57 | ED.REPORT ---
HPI-Chest Pain 40 and Over Date of Service March 27, 2017 ED Provider: Clint Garner MD Pt is a 77 year old female with a hx of afib on Warfarin, implanted heart monitor, angina, and an [place] in August 2016 presenting to the ED via EMS complaining of chest pain/pressure onset at 1030 this morning at rest. Associated symptoms include nausea, vomiting, SOB, and diaphoresis preceding the chest pressure. Pt received Zofran, ASA, Nitro x1 en route with relief. After taking the medications, pt reports a worsening migraine headache and nausea. Pt took Ibuprofen today without relief. Nursing Notes Stated Complaint: CHEST PAIN Chief Complaint: Chest Pain Nursing Notes Reviewed: Yes Allergies: Coded Allergies: Sulfa (Sulfonamide Antibiotics) (Verified Allergy, Severe, Rash, 03/27/17) morphine (Verified Allergy, Severe, big red hive, 03/27/17) Scheduled Aspirin (Aspirin) 81 Mg Tablet 81 MG PO DAILY Atenolol (Atenolol) 25 Mg Tablet 12.5 MG PO HS Cholecalciferol (Vitamin D3) (Vitamin D3) 1,000 Unit Tab.chew 1,000 UNIT PO DAILY Clonazepam (Clonazepam) 1 Mg Tab 1 MG PO BID Ergocalciferol (Vitamin D2) (Drisdol) 50,000 Unit Capsule 50,000 UNIT PO Mondays Gabapentin (Gabapentin) 300 Mg Capsule 300 MG PO TID Levothyroxine (Levothyroxine) 137 Mcg Tablet 137 MCG PO HS Lovastatin (Lovastatin) 20 Mg Tablet 20 MG PO HS Multivitamin (Multi Vitamin Daily) 1 Each Tablet 1 EACH PO DAILY Sertraline HCl (Zoloft) 100 Mg Tablet 200 MG PO QAM Vitamin E Mixed (Vitamin E) 400 Unit Capsule 400 UNIT PO DAILY Warfarin Sodium (Warfarin Sodium) 5 Mg Tablet 5 MG PO ,,, Fr, Sa,Jasso Warfarin Sodium (Warfarin Sodium) 5 Mg Tablet 2.5 MG PO Tuesday Warfarin Sodium (Warfarin Sodium) 5 Mg Tablet 5 MG PO DAILY Scheduled PRN Cyclobenzaprine (Cyclobenzaprine) 10 Mg Tablet 10 MG PO TID PRN PRN Spasm Nitroglycerin SL (Nitrostat) 0.4 Mg Tab.subl 0.4 MG SL Q5MIN PRN PRN For Chest Pain Nitroglycerin SL (Nitroglycerin SL) 0.4 Mg Tab.subl 0.4 MG SL Q5MIN PRN PRN chest pain oxyCODONE-Acetaminophen 5-325 mg (oxyCODONE-Acetaminophen 5-325 mg) 1 Each Tablet 1 TAB PO Q6H PRN PRN For Pain General Time Seen by MD: 12:49 Chief Complaint Chest pain Hx Obtained From: Patient, EMS Arrived By: Ambulance Sudden in Onset?: Yes Onset Occurred: Just prior to arrival Symptom Duration: Since onset Quality: Heaviness Severity: Current: Mild Severity: Maximum: Moderate Recent Healthcare: No recent doctor visit, No recent hospitalization Similar Sx Previous: No Past Medical History Past Medical History 1. Migraine headaches. 2. Paroxysmal atrial fibrillation on Warfarin 3. Fibromyalgia. 4. Hypertension. 5. Dyslipidemia. 6. History of heart block reported in the past. 7. Panic attacks. 8. Vhw-tcstwdw-zglgdfkka type 2 diabetes. 9. Osteoarthritis. 10. Syncope. 11. Shingles. 12. Basal cell carcinoma. 13. Thyroid cancer status post thyroidectomy. 14. Bilateral hearing loss. 15. T3 anterior compression fracture. 16. Angina 17. TIA 18. Hard of hearing Past Surgical History 1. Multiple knee surgeries bilaterally including bilateral knee replacement. 2. Status post appendectomy. 3. Status post cholecystectomy. 4. History of volvulus requiring exploratory laparotomy and lysis of adhesions. 5. Status post ventral hernia repair. 6. Status post ORIF of right femur. 7. Bladder nerve stimulator. Reports: Appendectomy, Cholecystectomy Family History Noncontributory Smoking History Never Smoker Social History Alcohol Use: Denies alcohol use Drug Use: Denies drug use Other Social History: Good social support, Local resident Ambulatory Status Walker Review of Systems Respiratory: Reports: Shortness of breath GI: Reports: Nausea, Vomiting Skin: Reports Diaphoresis Neurologic: Reports: Headache Complete sys rev & neg: except as marked. Physical Exam Initial Vital Signs Vital Signs (First) Date Time Temp Pulse Resp B/P Pulse Ox O2 Delivery O2 Flow Rate FiO2 03/27/17 12:46 36.7 62 20 109/66 92 Room Air Initial VS: Reviewed Head / Eyes: Atraumatic, Normocephalic, PERRL ENT: Mucous membranes moist, Conjunctiva normal, No scleral icterus Neck: Supple, Non-tender, Full range of motion Extremities: Vascular intact, Neuro intact, No swelling, No tenderness Skin: Warm, Dry, No cyanosis Neurologic: Alert, Oriented, Nonfocal Psychiatric: Mood/affect normal, Behavior normal, Normal thought content General/Constitutional: Awake, Alert, Well appearing Respiratory / Chest: Breath sounds NL, Breath sounds = bilat, No respiratory distress, No rales, No rhonchi, No wheezing, No stridor, No chest tenderness Cardiovascular: Heart rate NL, Regular rhythm, Heart sounds NL, No gallop, No murmurs, No rubs Interpretation & Diagnostics Lab Results Interpretation Result Diagram: 03/27/17 1255 03/27/17 1255 Test 03/27/17 12:55 03/27/17 15:41 White Blood Count 8.1th/mm3 (3.8-10.1) Red Blood Count 4.64mil/mm3 (3.90-5.20) Hemoglobin 13.5g/dL (12.0-15.6) Hematocrit 42.1% (35.0-46.0) Mean Corpuscular Volume 90.7fL (81-100) Mean Corpuscular Hemoglobin 29.1pg (27.0-35.0) Mean Corpuscular Hemoglobin Concent 32.1% (32.0-37.0) Red Cell Distribution Width 15.6% (12.3-15.4) Platelet Count 271bil/L (150-400) Neutrophils (%) (Auto) 57.0% (40-74) Lymphocytes (%) (Auto) 31.1% (14-46) Monocytes (%) (Auto) 6.8% (4-12) Eosinophils (%) (Auto) 4.3% (0-5) Basophils (%) (Auto) 0.7% (0-3) Prothrombin Time 13.5sec (8.1-12.5) Prothromb Time International Ratio 1.26ratio Sodium Level 139mEq/L (134-144) Potassium Level 4.6mEq/L (3.5-5.2) Chloride Level 101mEq/L (97-108) Carbon Dioxide Level 23mmol/L (18-29) Blood Urea Nitrogen 26mg/dL (8-27) Creatinine 0.90mg/dL (0.57-1.00) Estimat Glomerular Filtration Rate 87mL/min (>59) Glucose Level 111mg/dL (60-99) Calcium Level 9.4mg/dL (8.5-10.1) Magnesium Level 2.1mg/dL (1.6-2.6) Total Bilirubin 0.3mg/dL (0.0-1.2) Aspartate Amino Transf (AST/SGOT) 21U/L (0-50) Alanine Aminotransferase (ALT/SGPT) 13U/L (0-32) Alkaline Phosphatase 100U/L (25-165) Total Protein 7.7g/dL (6.4-8.4) Albumin 4.1g/dL (3.4-5.0) Troponin T < 0.010ug/L (0.0-0.011) ECG Interpretation ECG Interpretation: No change from 03/25. Prolonged NH interval. Old inferior infarct, no acute ST segment changes. Time: 13:02 Interpreted by: ED physician Normal ECG Interpretation: Normal rate (62), Normal sinus rhythm X-Ray Chest Interpretation Chest Xray Interpretation: IMPRESSION: No acute cardiopulmonary disease process. Dictated by: Soniya Schneider MD, PhD on 03/27/2017 at 13:38 Interpretation / Wet Read by: Interpret - Radiologist Re-Eval/Medical Decision Med Decision/Clinical Course 77-year-old female with a history of coronary disease and angina. Presents today with chest pain lasting greater than 4 hours without EKG changes and without elevation in troponin. Her pain is resolved with nitroglycerin. Additionally she had a headache with features of her typical migraine. This responded well to IV Compazine. Patient would like to go home and given that there is no evidence for an acute coronary event today think this is reasonable. Time of Eval: 13:44 Patient Status: Condition improved Re-Evaluation/Progress Note: Pt chest pain resolved. Time of Eval: 15:21 Patient Status: Condition improved Re-Evaluation/Progress Note: Pt headache improved. Her daughter reports that the pt usually has nitro at home with her for when she has episodes of chest pain, but that recently she lost her nitro. Time of Eval: 16:33 Patient Status: Condition improved Re-Evaluation/Progress Note: Discussed repeat tropinin results and plan for discharge. PT understands and agrees. Counseled Regarding: Diagnosis, Lab results, Need for follow-up, When/why to return to ED Discharge & Departure Primary Impression: Chest pain Chest pain type: precordial pain Qualified Code: R07.2 - Precordial pain Additional Impressions: Migraine headache Migraine type: without aura Intractability: not intractable Subtherapeutic international normalized ratio (INR) Disposition: Home Discharge Condition All VS Reviewed: Yes Condition: Improved Additional Instructions: Your emergency room visit today included interview, examination, labs, chest x ray and EKG. These tests did not show a sign of heart attack. It is felt safe for you to home today and continue previous home medications. We noted an INR today of 1.3, this is lower than desired take an extra 2.5 mg with your usual 5 mg dose tonight and contact primary care tomorrow for follow-up. Return emergency Department for recurrent chest pain or shortness of breath. Referrals: Emma Crump (PCP) Scribe Attestation Portions of this note were transcribed by Cindy Mendoza. I, Dr. Garner personally performed the history, physical exam and medical decision-making; I reviewed and confirmed the accuracy of the information in the transcribed note. Signed by : Judith Post, 03/27/17 at 1644. copies to: Emma Crump Donald L MD March 27, 2017 12:57 CINDY MENDOZA March 27, 2017 13:02
[2017-03-27 13:05] LABS: Mean Corpuscular Hemoglobin 29.1 pg (27.0-35.0); Mean Corpuscular Volume 90.7 fL (81-100)
[2017-03-27 13:06] LABS: BASOPHILS % (AUTO) 0.7 % (0-3); EOSINOPHILS % (AUTO) 4.3 % (0-5); MONOCYTES % (AUTO) 6.8 % (4-12); Platelet Count 271 bil/L (150-400)
[2017-03-27 13:23] LABS: TROPONIN T < 0.010 ug/L (0.0-0.011)
[2017-03-27 13:33] LABS: Magnesium 2.1 mg/dL (1.6-2.6)
--- NOTE | 2017-03-27 13:40 | DRSVH ---
PROCEDURE: X-RAY CHEST ONE VIEW, PORTABLE ([id number]) INDICATIONS: CHEST PAIN TECHNIQUE: One view of the chest was acquired. COMPARISON: None. 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 Surgical clips in the neck base.. Lungs and pleura: No pleural effusions or pneumothorax. Lungs are clear. Mediastinum: Mediastinal contours appear normal. Heart size is normal. Bones and chest wall: No suspicious bony lesions. Overlying soft tissues appear unremarkable. IMPRESSION: No acute cardiopulmonary disease process. Dictated by: Soniya Schneider MD, PhD on 03/27/2017 at 13:38 Approved by: Soniya Schneider MD, PhD on 03/27/2017 at 13:39
[2017-03-27] MEDS ORDERED: 0.9% Sodium Chloride 1,000 ML IV ONE (13:55)
[2017-03-27] MEDS ORDERED: ProchlorPERazine 5 mg/mL 2 mL Inj IVPUSH ONE (13:55)
[2017-03-27 14:31] VITALS: BP 105/60; PULSE 57; RESP 16; O2SAT 93
[2017-03-27 15:33] VITALS: BP 132/68; PULSE 60; RESP 22; O2SAT 95
[2017-03-27 15:33] LABS: INR 1.26 ratio
[2017-03-27] MEDS ORDERED: NITR0.4T6 SL (16:42)
[2017-03-27 16:44] VITALS: BP 123/72; PULSE 53; RESP 16; O2SAT 92
[2017-03-27 16:58] VITALS: BP 123/72; PULSE 53; RESP 16; O2SAT 92
== END 2017-03-27 16:43 | disposition home or self-care (01) ==
LOC: SED 12:42
DX: R07.2 Precordial pain (principal); G43.009 Migraine without aura, not intractable, without status migrainosus; R79.1 Abnormal coagulation profile; I25.2 Old myocardial infarction; I10 Essential (primary) hypertension; E78.5 Hyperlipidemia, unspecified; E11.9 Type 2 diabetes mellitus without complications; Z88.2 Allergy status to sulfonamides; Z88.5 Allergy status to narcotic agent; Z79.82 Long term (current) use of aspirin; Z86.73 Personal history of transient ischemic attack (TIA), and cerebral infarction without residual deficits; Z79.01 Long term (current) use of anticoagulants
CPT/HCPCS: 36415; 71010; 80053; 82948; 83735; 84484; 85025; 85610; 93005; 96361; 96374; 96375; 99285; J0780; J1200; J7030

== ENCOUNTER 2017-05-07 23:30 | Emergency (ER) | payer MEDICARE ==
[~2017-05-07] VITALS: Ht 175.3 cm; Wt 112.7 kg
[~2017-05-07 23:30] MED LIST changes: +NITR0.4T6 SL
[2017-05-07 23:46] VITALS: BP 119/57; PULSE 84; RESP 25; O2SAT 93
[2017-05-07 23:53] VITALS: BP 107/67; PULSE 63
[2017-05-08 00:14] VITALS: BP 120/95; PULSE 89; RESP 27; O2SAT 94
--- NOTE | 2017-05-08 00:24 | ED.REPORT ---
HPI-General Illness Date of Service May 08, 2017 ED Provider: Vahid Clark MD Pt is a 77 year old female with a history of HTN who presents to the ED via EMS after accidentally taking a double dosage of her medications onset prior to arrival. She c/o associated dizziness, lethargy, and slurred speech. She denies any other symptoms. Nursing Notes Stated Complaint: ACCIDENTAL MEDICATION OVERDOSE Chief Complaint: General Complaint Nursing Notes Reviewed: Yes Allergies: Coded Allergies: Sulfa (Sulfonamide Antibiotics) (Verified Allergy, Severe, Rash, 03/27/17) morphine (Verified Allergy, Severe, big red hive, 03/27/17) Scheduled Aspirin (Aspirin) 81 Mg Tablet 81 MG PO DAILY Atenolol (Atenolol) 25 Mg Tablet 12.5 MG PO HS Cholecalciferol (Vitamin D3) (Vitamin D3) 1,000 Unit Tab.chew 1,000 UNIT PO DAILY Clonazepam (Clonazepam) 1 Mg Tab 1 MG PO BID Ergocalciferol (Vitamin D2) (Drisdol) 50,000 Unit Capsule 50,000 UNIT PO Mondays Gabapentin (Gabapentin) 300 Mg Capsule 300 MG PO TID Levothyroxine (Levothyroxine) 137 Mcg Tablet 137 MCG PO HS Lovastatin (Lovastatin) 20 Mg Tablet 20 MG PO HS Multivitamin (Multi Vitamin Daily) 1 Each Tablet 1 EACH PO DAILY Sertraline HCl (Zoloft) 100 Mg Tablet 200 MG PO QAM Vitamin E Mixed (Vitamin E) 400 Unit Capsule 400 UNIT PO DAILY Warfarin Sodium (Warfarin Sodium) 5 Mg Tablet 5 MG PO ,,, , Sa,Jasso Warfarin Sodium (Warfarin Sodium) 5 Mg Tablet 2.5 MG PO Tuesday Warfarin Sodium (Warfarin Sodium) 5 Mg Tablet 5 MG PO DAILY Scheduled PRN Cyclobenzaprine (Cyclobenzaprine) 10 Mg Tablet 10 MG PO TID PRN PRN Spasm Nitroglycerin SL (Nitrostat) 0.4 Mg Tab.subl 0.4 MG SL Q5MIN PRN PRN For Chest Pain Nitroglycerin SL (Nitroglycerin SL) 0.4 Mg Tab.subl 0.4 MG SL Q5MIN PRN PRN chest pain oxyCODONE-Acetaminophen 5-325 mg (oxyCODONE-Acetaminophen 5-325 mg) 1 Each Tablet 1 TAB PO Q6H PRN PRN For Pain General Time Seen by MD: 23:45 Chief Complaint Other (Medication overdose) Hx Obtained From: Patient, EMS Arrived By: Ambulance Sudden in Onset?: Yes Onset Occurred: Just prior to arrival Symptom Duration: Since onset Caused by: Accidental Severity: Current: No pain currently Severity: Maximum: No pain Recent Healthcare: Recent doctor visit Similar Sx Previous: No Past Medical History Past Medical History 1. Migraine headaches. 2. Paroxysmal atrial fibrillation on Warfarin 3. Fibromyalgia. 4. Hypertension. 5. Dyslipidemia. 6. History of heart block reported in the past. 7. Panic attacks. 8. Lgb-cpoaxbf-ejawfxgxm type 2 diabetes. 9. Osteoarthritis. 10. Syncope. 11. Shingles. 12. Basal cell carcinoma. 13. Thyroid cancer status post thyroidectomy. 14. Bilateral hearing loss. 15. T3 anterior compression fracture. 16. Angina 17. TIA 18. Hard of hearing Past Surgical History 1. Multiple knee surgeries bilaterally including bilateral knee replacement. 2. Status post appendectomy. 3. Status post cholecystectomy. 4. History of volvulus requiring exploratory laparotomy and lysis of adhesions. 5. Status post ventral hernia repair. 6. Status post ORIF of right femur. 7. Bladder nerve stimulator. Reports: Appendectomy, Cholecystectomy Family History Noncontributory Smoking History Never Smoker Social History Lives on [facility] by herself. Alcohol Use: Denies alcohol use Drug Use: Denies drug use Other Social History: Good social support, Lives alone, Local resident Ambulatory Status Independent Review of Systems Full Review of Systems Constitutional: Reports: Lethargy, Denies: Fever Respiratory: Denies: Non-productive cough, Shortness of breath Neurologic: Reports: Dizziness, Slurred speech Complete sys rev & neg: except as marked. Physical Exam Vital Signs Vital Signs Date Time Temp Pulse Resp B/P Pulse Ox O2 Delivery O2 Flow Rate FiO2 05/08/17 02:47 36.8 82 18 112/80 94 Room Air 05/08/17 01:33 88 22 106/77 92 Room Air 05/08/17 01:13 84 20 120/75 94 Room Air 05/08/17 00:14 89 27 120/95 94 Room Air 05/07/17 23:53 63 107/67 05/07/17 23:46 36.9 84 25 119/57 93 Room Air Initial VS: Reviewed, Vital signs normal Head / Eyes: Atraumatic, Normocephalic Neck: Supple, Full range of motion Respiratory: Breath sounds normal, Clear to auscultation, No respiratory distress Cardiovascular: Regular rate & rhythm, Heart sounds normal, Intact distal pulses Abdomen / GI: Soft, Non-tender Extremities: Vascular intact, Neuro intact Skin: Warm, Dry, No cyanosis Neurologic: Alert, Oriented, Nonfocal Psychiatric: Mood/affect normal, Behavior normal General/Constitutional: Awake, Alert, Cooperative, Not toxic appearing Interpretation & Diagnostics Lab Results Interpretation Test 05/07/17 23:30 Hold Purple Top Tube Received (Received) Hold Blue Top Tube Received (Received) Hold [place] Top Tube Received (Received) Re-Eval/Medical Decision Med Decision/Clinical Course 77-year-old female who lives alone actually took double dose of her evening medications including atenolol, clonazepam, and warfarin. She was evaluated by the paramedics on scene and they called me and requested guidance. Because she lives alone, because of her age, and because she was already symptomatic with lightheadedness and dizziness it was recommended that she come to the hospital for a brief period of observation. At no time did she show dramatic vital signs alteration. She was not overly sedated, in fact had trouble napping. She was released home, and one of her granddaughters came to get her. It is recommended that she not take her morning clonazepam nor her daily warfarin dose on Tuesday. She should however take her atenolol Tuesday night as she normally would, essentially ignoring the extra dose which does not seem to have had a dramatic affect. Source of Hx: Old records Time of Eval: 02:04 Patient Status: Condition improved Re-Evaluation/Progress Note: Pt rechecked. Pt wants to go home. Informed pt of plan for discharge. Pt understands and agrees with plan for discharge. F/U instructions and RTER warnings given. All questions addressed. Counseled Regarding: Diagnosis, Lab results, Need for follow-up, When/why to return to ED Discharge & Departure Primary Impression: Accidental medication overdose Encounter type: initial encounter Qualified Code: T50.901A - Poisoning by unspecified drugs, medicaments and biological substances, accidental ( unintentional), initial encounter Disposition: Home Discharge Condition All VS Reviewed: Yes Condition: Stable Additional Instructions: It appears that the extra medicines you took tonight will not be dangerous. Do not take any clonazepam in the morning but do take your evening dose Tuesday night. Take your usual evening dose Tuesday night of atenolol. DO NOT TAKE WARFARIN TUESDAY. Referrals: Emma Crump (PCP) Scribe Attestation Portions of this note were transcribed by Alka Ramirez. I, Dr. Clark personally performed the history, physical exam and medical decision-making; I reviewed and confirmed the accuracy of the information in the transcribed note. Signed by: Judith Camilo, 05/08/17 and 01:50. copies to: Emma Crump Howard L MD May 08, 2017 00:24 Alka Argueta May 08, 2017 00:36
[2017-05-08 01:13] VITALS: BP 120/75; PULSE 84; RESP 20; O2SAT 94
[2017-05-08 01:33] VITALS: BP 106/77; PULSE 88; RESP 22; O2SAT 92
[2017-05-08 02:47] VITALS: BP 112/80; PULSE 82; RESP 18; O2SAT 94
== END 2017-05-08 03:16 | disposition home or self-care (01) ==
LOC: SED 23:30
DX: R42 Dizziness and giddiness (principal); R53.83 Other fatigue; R47.81 Slurred speech; T44.7X1A Poisoning by beta-adrenoreceptor antagonists, accidental (unintentional), initial encounter; T42.4X1A Poisoning by benzodiazepines, accidental (unintentional), initial encounter; T45.511A Poisoning by anticoagulants, accidental (unintentional), initial encounter; Y93.89 Activity, other specified; Y92.89 Other specified places as the place of occurrence of the external cause; Y99.8 Other external cause status; I11.9 Hypertensive heart disease without heart failure; E11.59 Type 2 diabetes mellitus with other circulatory complications; I48.0 Paroxysmal atrial fibrillation; G43.909 Migraine, unspecified, not intractable, without status migrainosus; M79.7 Fibromyalgia; E78.5 Hyperlipidemia, unspecified; Z86.73 Personal history of transient ischemic attack (TIA), and cerebral infarction without residual deficits; Z79.82 Long term (current) use of aspirin; Z79.01 Long term (current) use of anticoagulants; Z88.2 Allergy status to sulfonamides; Z88.5 Allergy status to narcotic agent

== ENCOUNTER 2017-05-09 15:00 | Observation (INO) | payer MEDICARE ==
[~2017-05-09] VITALS: Ht 175.3 cm; Wt 112.5 kg
[2017-05-09 15:02] VITALS: BP 100/57; PULSE 54; RESP 18; O2SAT 93
--- NOTE | 2017-05-09 15:29 | ED.REPORT ---
HPI-General Illness Date of Service May 09, 2017 ED Provider: Dr. Goncalves Pt is a 77 year old female with a hx of HTN, DM II and afib on Coumadin presenting to the ED complaining of 9/[address] the way across her chest onset at 1345 today. Associated symptoms include nausea and diaphoresis. Denies fever, chills, vomiting, SOB, abdominal pain, bloody urine, vision changes, headache, dysuria, focal weakness, speech changes, or any other symptoms at this time. Pt saw her PCP today for a routine checkup, but then began having the chest pain just before her appointment. She took a Nitro at home with some relief prior to arrival but the pain is now gradually worsening at a 9/10 and radiates up to her left shoulder and left jaw, and feels more like a soreness. Nursing Notes Stated Complaint: CHEST PAIN Chief Complaint: Chest Pain Nursing Notes Reviewed: Yes Allergies: Coded Allergies: Sulfa (Sulfonamide Antibiotics) (Verified Allergy, Severe, Rash, 03/27/17) morphine (Verified Allergy, Severe, big red hive, 03/27/17) Scheduled Aspirin (Aspirin) 81 Mg Tablet 81 MG PO DAILY Atenolol (Atenolol) 25 Mg Tablet 12.5 MG PO HS Cholecalciferol (Vitamin D3) (Vitamin D3) 1,000 Unit Tab.chew 1,000 UNIT PO DAILY Clonazepam (Clonazepam) 1 Mg Tab 1 MG PO BID Ergocalciferol (Vitamin D2) (Drisdol) 50,000 Unit Capsule 50,000 UNIT PO Mondays Gabapentin (Gabapentin) 300 Mg Capsule 300 MG PO TID Levothyroxine (Levothyroxine) 137 Mcg Tablet 137 MCG PO HS Lovastatin (Lovastatin) 20 Mg Tablet 20 MG PO HS Multivitamin (Multi Vitamin Daily) 1 Each Tablet 1 EACH PO DAILY Sertraline HCl (Zoloft) 100 Mg Tablet 200 MG PO QAM Vitamin E Mixed (Vitamin E) 400 Unit Capsule 400 UNIT PO DAILY Warfarin Sodium (Warfarin Sodium) 5 Mg Tablet 5 MG PO DAILY Scheduled PRN Cyclobenzaprine (Cyclobenzaprine) 10 Mg Tablet 10 MG PO TID PRN PRN Spasm Nitroglycerin SL (Nitrostat) 0.4 Mg Tab.subl 0.4 MG SL Q5MIN PRN PRN For Chest Pain oxyCODONE-Acetaminophen 5-325 mg (oxyCODONE-Acetaminophen 5-325 mg) 1 Each Tablet 1 TAB PO Q6H PRN PRN For Pain General Time Seen by MD: 15:28 Chief Complaint Chest pain Hx Obtained From: Patient Arrived By: Walk-in Sudden in Onset?: Yes Onset Occurred: 1 - 4 hours ago Symptom Duration: Since onset Location: : Chest Quality: Cramping, Painful Radiation: : Arm left (Shoulder and neck) Severity: Current: Pain level 9 out of 10 Severity: Maximum: Pain level 9 out of 10 Recent Healthcare: No recent hospitalization, Recent doctor visit Similar Sx Previous: No Past Medical History Past Medical History 1. Migraine headaches. 2. Paroxysmal atrial fibrillation on Warfarin 3. Fibromyalgia. 4. Hypertension. 5. Dyslipidemia. 6. History of heart block reported in the past. 7. Panic attacks. 8. Vtt-dwfaade-exehxukai type 2 diabetes. 9. Osteoarthritis. 10. Syncope. 11. Shingles. 12. Basal cell carcinoma. 13. Thyroid cancer status post thyroidectomy. 14. Bilateral hearing loss. 15. T3 anterior compression fracture. 16. Angina 17. TIA 18. Hard of hearing Past Surgical History 1. Multiple knee surgeries bilaterally including bilateral knee replacement. 2. Status post appendectomy. 3. Status post cholecystectomy. 4. History of volvulus requiring exploratory laparotomy and lysis of adhesions. 5. Status post ventral hernia repair. 6. Status post ORIF of right femur. 7. Bladder nerve stimulator. Reports: Appendectomy, Cholecystectomy Family History Noncontributory Smoking History Never Smoker Social History Lives on [facility] by herself. Alcohol Use: Denies alcohol use Drug Use: Denies drug use Other Social History: Good social support, Lives alone, Local resident Ambulatory Status Independent Review of Systems Full Review of Systems Constitutional: Denies: Chills, Fever Eyes: Denies: Blurred bilateral Respiratory: Denies: Shortness of breath Cardiovascular: Reports: Chest pain GI: Reports: Nausea, Denies: Abdominal pain, Bloody/tarry stool, Diarrhea, Vomiting Female: Denies: Dysuria, Hematuria Skin: Reports Diaphoresis Neurologic: Denies: Focal weakness, Headache, Slurred speech, Vision change Complete sys rev & neg: except as marked. Physical Exam Nursing note and vitals reviewed. Constitutional: Well-developed, well-nourished. Not diaphoretic. Head: Normocephalic and atraumatic. Mouth/Throat: Oropharynx is clear and moist. No oropharyngeal exudate. Eyes: EOM are normal. Pupils are equal, round, and reactive to light. Neck: Supple, no tracheal deviation. Cardiovascular: Normal rate, regular rhythm. Equal and intact distal pulses throughout. Pulmonary/Chest: Effort normal and breath sounds normal. No respiratory distress. Abdominal: Soft. No distension. There is no tenderness, rebound, or guarding. Bowel sounds present. Musculoskeletal: Range of motion grossly intact, moving all extremities. No peripheral edema or tenderness appreciated. Neurological: AOx3. Grossly nonfocal exam. Strength and sensation intact and equal to bilateral upper and lower extremities. Skin: Warm and dry, no rashes or pallor appreciated. Psychiatric: Appropriate mood and affect. Behavior appears normal. Vital Signs Vital Signs Date Time Temp Pulse Resp B/P Pulse Ox O2 Delivery O2 Flow Rate FiO2 05/09/17 16:37 36.8 56 17 118/76 95 Room Air 05/09/17 15:02 36.8 54 18 100/57 93 Room Air Initial VS: Reviewed Interpretation & Diagnostics Lab Results Interpretation Result Diagram: 05/09/17 1610 05/09/17 1610 Test 05/09/17 16:10 White Blood Count 8.2th/mm3 (3.8-10.1) Red Blood Count 4.51mil/mm3 (3.90-5.20) Hemoglobin 13.3g/dL (12.0-15.6) Hematocrit 41.3% (35.0-46.0) Mean Corpuscular Volume 91.6fL (81-100) Mean Corpuscular Hemoglobin 29.5pg (27.0-35.0) Mean Corpuscular Hemoglobin Concent 32.2% (32.0-37.0) Red Cell Distribution Width 15.2% (12.3-15.4) Platelet Count 233bil/L (150-400) Neutrophils (%) (Auto) 57.6% (40-74) Lymphocytes (%) (Auto) 31.5% (14-46) Monocytes (%) (Auto) 6.7% (4-12) Eosinophils (%) (Auto) 3.5% (0-5) Basophils (%) (Auto) 0.5% (0-3) Prothrombin Time 18.5sec (8.1-12.5) Prothromb Time International Ratio 1.71ratio Activated Partial Thromboplast Time 33.1sec (22.8-33.0) Sodium Level 137mEq/L (134-144) Potassium Level 4.7mEq/L (3.5-5.2) Chloride Level 98mEq/L (97-108) Carbon Dioxide Level 23mmol/L (18-29) Blood Urea Nitrogen 20mg/dL (8-27) Creatinine 0.97mg/dL (0.57-1.00) Estimat Glomerular Filtration Rate 80mL/min (>59) Glucose Level 90mg/dL (60-99) Calcium Level 8.8mg/dL (8.5-10.1) Total Bilirubin 0.3mg/dL (0.0-1.2) Aspartate Amino Transf (AST/SGOT) 23U/L (0-50) Alanine Aminotransferase (ALT/SGPT) 14U/L (0-32) Alkaline Phosphatase 74U/L (25-165) Total Protein 7.2g/dL (6.4-8.4) Albumin 3.9g/dL (3.4-5.0) Hold So Top Tube Received (Received) ECG Interpretation ECG Interpretation: Sinus arrhythmia. No significant change from previous EKG on 03/27/2017. Time: 15:31 Interpreted by: ED physician X-Ray Chest Interpretation Chest Xray Interpretation: IMPRESSION: Stable chest. No acute cardiopulmonary process is evident. Dictated by: Fito Avila M.D. on 05/09/2017 at 15:09 View: Portable, 1 view Interpretation / Wet Read by: Interpret - Radiologist Re-Eval/Medical Decision Med Decision/Clinical Course Chest x ray negative. Initial troponin negative. INR 1.7 subtharapeutic. Rest of labs grossly within normal limits. Not having any chest pain radiating through back. No neuro symptoms. No evidence for dissection at this time. However, her story is concerning for unstable angina given chest pain radiating up to her jaw, persistent, as well as risk factors. She has not had a stress test in several years. Plan admission for further evaluation and management, likely provocative testing, telemetry. Time of Eval: 17:34 Patient Status: Condition improved Re-Evaluation/Progress Note: Discussed plan for admission. Pt understands and agrees with plan. Pt continues to have left sided chest pain radiating toward her jaw. Consultation #1: Referral / Consult Name: Corey Wills Consulted With: Hospitalist Call Returned at: 17:56 Advertising Clerk: Will see patient, Agrees with plan, Accepts admit Consultation #2: Referral / Consult Name: Joseph Elizabeth MD Consulted With: Cardiology Call Returned at: 17:53 Advertising Clerk: Agrees with plan Note: Agrees that pt should be admitted. Counseled Regarding: Diagnosis, Lab results, Need for follow-up, When/why to return to ED Discharge & Departure Primary Impression: Chest pain Chest pain type: unspecified Qualified Code: R07.9 - Chest pain, unspecified Disposition: ADMITTED TO HOSPITAL Discharge Condition All VS Reviewed: Yes Condition: Improved Referrals: Emma Crump (PCP) Nadir Rivera MD Attestation Portions of this note were transcribed by Cindy Mendoza. I, Dr. Goncalves personally performed the history, physical exam and medical decision-making; I reviewed and confirmed the accuracy of the information in the transcribed note. Signed by: Judith Post, 05/09/2017 at 1809. copies to: Emma Crump; Nadir Rivera MD, William B MD May 09, 2017 15:29 CINDY MENDOZA May 09, 2017 15:39 Dilip Goncalves MD May 09, 2017 15:29 CINDY MENDOZA May 09, 2017 15:39
[2017-05-09] MEDS ORDERED: 0.9% Sodium Chloride 1,000 ML IV ONE (15:35)
[2017-05-09] MEDS ORDERED: oxyCODONE-Acetamin 10-325 mg Tablet PO ONE (15:50)
--- NOTE | 2017-05-09 16:11 | DRSVH ---
PROCEDURE: X-RAY CHEST ONE VIEW, PORTABLE ([id number]) INDICATIONS: chest pain TECHNIQUE: One view of the chest was acquired. COMPARISON: [facility], CR, XR CHEST 1VW (PORTABLE), 03/27/2017, 13:08. FINDINGS: Surgical changes and devices: None. Lungs and pleura: No pleural effusions or pneumothorax. Lungs are clear. The aeration of the lungs is similar to the prior study. Mediastinum: Mediastinal contours appear normal. Heart size is normal. There is aortic atheroscler osis. Bones and chest wall: No suspicious bony lesions. Prominent degenerative changes of the mid spine a nd bilateral acromioclavicular joints are present. Overlying soft tissues appear unremarkable. IMPRESSION: Stable chest. No acute cardiopulmonary process is evident. Dictated by: Ftio Avila M.D. on 05/09/2017 at 15:09 Approved by: Fito Avila M.D. on 05/09/2017 at 15:09
[2017-05-09 16:20] LABS: BASOPHILS % (AUTO) 0.5 % (0-3); EOSINOPHILS % (AUTO) 3.5 % (0-5); MONOCYTES % (AUTO) 6.7 % (4-12); Mean Corpuscular Hemoglobin 29.5 pg (27.0-35.0); Mean Corpuscular Volume 91.6 fL (81-100); NEUTROPHILS % (AUTO) 57.6 % (40-74); Platelet Count 233 bil/L (150-400)
[2017-05-09 16:37] VITALS: BP 118/76; PULSE 56; RESP 17; O2SAT 95
[2017-05-09 16:40] LABS: INR 1.71 ratio
[2017-05-09 16:48] LABS: TROPONIN T < 0.010 ug/L (0.0-0.011)
[2017-05-09] MEDS: Lactated Ringer's 1,000 ML IV SCH (18:41)
[2017-05-09 18:50] VITALS: BP 125/85; PULSE 55; RESP 20; O2SAT 92
[2017-05-09 20:10] VITALS: BP 130/92; PULSE 57; PULSE 65; RESP 18; O2SAT 95
[2017-05-09 20:40] LABS: APPEARANCE,URINE CLEAR (CLEAR,HAZY); COLOR,URINE YELLOW (YELLOW); OCCULT BLOOD,URINE NEGATIVE (NEGATIVE); PH,URINE 5.5 (5.0-8.0); UROBILINOGEN,URINE NORMAL (NORMAL)
[2017-05-09] MEDS: 0.9% Sodium Chloride 1,000 ML IV SCH (21:31)
[2017-05-09] MEDS ORDERED: Ondansetron 2 mg/mL 2 mL Inj IVPUSH PRN (21:35)
[2017-05-09] MEDS ORDERED: Polyethylene Glycol (PEG) 17 Gm Powder PO PRN (21:35)
[2017-05-09] MEDS ORDERED: Alum-Mag Hydrox-Simeth 30 mL Suspension PO PRN (21:35)
[2017-05-09] MEDS ORDERED: Atropine 1 mg/10 mL (Code) Syringe IVPUSH PRN (21:35)
[2017-05-09] MEDS ORDERED: Senna-Docusate 8.6-50 mg Tablet PO PRN (21:35)
--- NOTE | 2017-05-09 22:07 | PCM.CONPHA ---
Subjective Date of Service: May 09, 2017 Objective Vital Signs Date Time Temp Pulse Resp B/P Pulse Ox O2 Delivery O2 Flow Rate FiO2 05/09/17 20:10 37.0 65 18 130/92 95 Room Air 05/09/17 20:10 57 05/09/17 18:50 36.8 55 20 125/85 92 Room Air 05/09/17 16:37 36.8 56 17 118/76 95 Room Air 05/09/17 15:02 36.8 54 18 100/57 93 Room Air Weight (Kilograms): 113.700 Height (Feet): 5 Height (Inches): 9.00 Test 05/09/17 16:10 05/09/17 20:10 05/09/17 20:33 White Blood Count 8.2th/mm3 (3.8-10.1) Red Blood Count 4.51mil/mm3 (3.90-5.20) Hemoglobin 13.3g/dL (12.0-15.6) Hematocrit 41.3% (35.0-46.0) Mean Corpuscular Volume 91.6fL (81-100) Mean Corpuscular Hemoglobin 29.5pg (27.0-35.0) Mean Corpuscular Hemoglobin Concent 32.2% (32.0-37.0) Red Cell Distribution Width 15.2% (12.3-15.4) Platelet Count 233bil/L (150-400) Neutrophils (%) (Auto) 57.6% (40-74) Lymphocytes (%) (Auto) 31.5% (14-46) Monocytes (%) (Auto) 6.7% (4-12) Eosinophils (%) (Auto) 3.5% (0-5) Basophils (%) (Auto) 0.5% (0-3) Prothrombin Time 18.5sec (8.1-12.5) Prothromb Time International Ratio 1.71ratio Activated Partial Thromboplast Time 33.1sec (22.8-33.0) Sodium Level 137mEq/L (134-144) Potassium Level 4.7mEq/L (3.5-5.2) Chloride Level 98mEq/L (97-108) Carbon Dioxide Level 23mmol/L (18-29) Blood Urea Nitrogen 20mg/dL (8-27) Creatinine 0.97mg/dL (0.57-1.00) Estimat Glomerular Filtration Rate 80mL/min (>59) Glucose Level 90mg/dL (60-99) Calcium Level 8.8mg/dL (8.5-10.1) Total Bilirubin 0.3mg/dL (0.0-1.2) Aspartate Amino Transf (AST/SGOT) 23U/L (0-50) Alanine Aminotransferase (ALT/SGPT) 14U/L (0-32) Alkaline Phosphatase 74U/L (25-165) Total Protein 7.2g/dL (6.4-8.4) Albumin 3.9g/dL (3.4-5.0) Hold So Top Tube Received (Received) Urine Color Yellow (YELLOW) Urine Appearance Clear (CLEAR,HAZY) Urine pH 5.5 (5.0-8.0) Urine Specific [place] 1.010 (1.003-1.035) Urine Protein Negativemg/dL (NEG,TRACE) Urine Glucose (UA) Negativemg/dL (NEGATIVE) Urine Ketones Negativemg/dL (NEGATIVE) Urine Occult Blood Negative (NEGATIVE) Urine Nitrite Negative (NEGATIVE) Urine Bilirubin Negative (NEGATIVE) Urine Urobilinogen Normalmg/dL (NORMAL) Urine Leukocyte Esterase Negative (NEGATIVE) Urine RBC 0-2/hpf (0-2) Urine WBC 0-5/hpf (0-5) Urine Epithelial Cells Few/hpf (NONE-MOD) Urine Crystals None seen (NONE SEEN) Urine Bacteria Few/hpf (NONE-FEW) Urine Hyaline Casts None/lpf (NONE) Urine Granular Casts None seen (NONE SEEN) Urine Waxy Casts None seen (NONE SEEN) Urine Red Blood Cell Casts None seen (NONE SEEN) Urine White Blood Cell Casts None seen (NONE SEEN) Urine Mucus None seen (None Seen) Urine Trichomonas None seen (NONE SEEN) Urine Yeast None (NONE SEEN) Urinalysis Comment None Urine Culture Reflexed Not indicated Troponin T 0.010ug/L (0.0-0.011) Assessment/Plan Assessment/Plan Warfarin management per pharmacy Indication: atrial fibrillation INR goal: 2-3 Home warfarin dose: 5 mg daily INR today: 1.71 INR is subtherapeutic. According to the med rec, patient has not had any warfarin since 05/07. Will give small bolus dose today. Give warfarin 6 mg PO one time now. Serial INRs have been ordered. Pharmacy to continue to monitor and dose warfarin daily. Thank you, Roma Moy Pharmacist Roma Moy May 09, 2017 22:07
[2017-05-09 22:24] LABS: Magnesium 1.9 mg/dL (1.6-2.6)
[2017-05-10] VITALS (11 sets, daily range): BP systolic 95–144; BP diastolic 53–77; PULSE 51–66; RESP 16–52; O2SAT 90–97
[2017-05-10] MEDS ORDERED: Heparin 5,000 Unit/mL Inj SUBQ SCH (00:30)
[2017-05-10] MEDS ORDERED: Heparin 25K Unit/500mL 0.45 NS 25,000 UNIT in IV Premix 1 EACH IV SCH (01:25)
[2017-05-10] MEDS ORDERED: Heparin 5,000 Unit/mL Inj IVPUSH PRN (01:25)
[2017-05-10] MEDS ORDERED: Acetaminophen IV 1,000 MG in IV Premix 1 EACH IV PRN (01:25)
[2017-05-10] MEDS ORDERED: Heparin 5,000 Unit/mL Inj IVPUSH ONE (01:25)
[2017-05-10] MEDS ORDERED: Nitroglycerin 2% 1 Gm Ointment TOPICAL ONE (01:25)
[2017-05-10] MEDS: oxyCODONE-Acetamin 5-325 mg Tablet PO PRN ×2 (01:33→15:17)
--- NOTE | 2017-05-10 01:39 | PCM.HPMED ---
Subjective Date of Service May 10, 2017 Primary Provider: Admitting Physician: Corey Wills Primary Care Physician: Emma Crump Attending Physician: Corey Wills Admit Status: From the Emergency Department Chief Complaint: Chest pain, nausea, diaphoresis History of Present Illness: Pt is a 77 year old female with a hx of HTN, DM II and afib on Coumadin who presented with chest pain radiating to her left shoulder and left jaw. She describes it as a 9/[address] the way across her chest onset at 1345 today. Pt saw her PCP today for a routine checkup, but then began having the chest pain just before her appointment. She was noted to be hypotensive in the clinic, and was sent to the ED. Associated symptoms include nausea and diaphoresis. Denies edema, palpitations, fever, chills, vomiting, SOB, abdominal pain, bloody urine, vision changes, headache, dysuria, focal weakness , speech changes, or any other symptoms at this time. She took a Nitro at home with some relief prior to arrival but the pain began to gradually worsen. On admission, she states the chest pain, diaphoresis, and shortness of breath had mostly resolved. She states she has had dizziness and falls over the last year, and the dizziness had worsened over the last 1-2 days. On admission, HR was 55, BP was 144/70, O2 93 on room air. CBC and CMP were normal. Troponin <0.01. TSH 4.75. UA negative. CXR showed no acute cardiopulmonary process. PCP: Marina Crump Review of Systems: Comprehensive review of systems conducted and was negative except for the pertinent positives listed above. Allergies Coded Allergies: Sulfa (Sulfonamide Antibiotics) (Verified Allergy, Severe, Rash, 03/27/17) morphine (Verified Allergy, Severe, big red hive, 03/27/17) Home Medications Aspirin 81 mg daily Atenolol 12.5 mg qhs Clonazepam 1 mg BID Cyclobenzaprine 10 mg TID PRN Gabapentin 300 mg TID Levothyroxine 137 mcg qhs Lovastatin 20 mg qhs Nitro 0.4 mg SL PRN Percocet 5/325 1 tab q6h PRN Sertraline 200 mg daily Warfarin 5 mg daily PMH Migraine headaches. Paroxysmal atrial fibrillation on Warfarin Fibromyalgia. Hypertension. Dyslipidemia. History of heart block reported in the past. Panic attacks. Nem-mxjkxlu-kmidsflrg type 2 diabetes. Osteoarthritis. Syncope. Shingles. Basal cell carcinoma. Thyroid cancer status post thyroidectomy. Bilateral hearing loss. T3 anterior compression fracture. Angina TIA Hard of hearing Surgical History Multiple knee surgeries bilaterally including bilateral knee replacement. Status post appendectomy. Status post cholecystectomy. History of volvulus requiring exploratory laparotomy and lysis of adhesions. Status post ventral hernia repair. Status post ORIF of right femur. Bladder nerve stimulator. Appendectomy Cholecystectomy Family History Mother: Diabetes, of stroke at 88 Brothers (x3): of asbestosis Sister: Diabetes Social History Hx Alcohol Use: Yes (occasionally) Hx Substance Use: No Hx Tobacco Use: No Smoking Status: Never Smoker Exam Vital Signs Vital Sign - Last Date Time Temp Pulse Resp B/P Pulse Ox O2 Delivery O2 Flow Rate FiO2 05/10/17 00:56 36.6 55 18 144/70 93 Room Air Intake and Output 05/09/17 05/09/17 05/10/17 Cumulative From/Thru 15:00 23:00 07:00 05/09/17 15:02 - 05/09/17 20:10 Intake Total 1000 ml 1000 ml Balance 1000 ml 1000 ml Intake IV Total 1000 ml 1000 ml Exam General: Alert, Oriented X3, Cooperative, No acute distress Head: Normocephalic, atraumatic. External ears normal. Eyes: PERRLA, EOMI. Anicteric sclerae. Mouth: Mouth normal, Mucous membranes moist/pink Neck: Neck supple with full range of motion. Chest& Lungs: Clear to auscultation bilaterally with no crackles, wheezes, or rhonchi. Cardiovascular: Regular rate/rhythm, Normal S1, Normal S2, No murmurs/rubs/ gallops Abdomen: Non-tender, Non-distended, No masses, Normoactive bowel tones, Soft Musculoskeletal: Normal range of motion Extremities: No cyanosis/clubbing/edema bilaterally Neurological: Grossly neurologically intact. Normal speech Lab and Diagnostics Result Diagram: 05/09/17 1610 05/09/17 1610 Assessment & Plan Pt is a 77 year old female with a hx of HTN, DM II and afib on Coumadin who presented with chest pain radiating to her left shoulder and left jaw. Admitted for unstable angina. Unstable angina, acute. Present on admission. - Pt presents with typical chest pain with nausea and diaphoresis while at the clinic. Troponin negative. EKG shows sinus rhythm. Chest pain improved with nitro, but continues to be difficult to manage, and intermittently worsens. Will start heparin drip and order pharm stress test in AM. - Sublingual nitro PRN - Nitro paste 1 inch - Continue home atenolol - Continue home aspirin - Plavix 300 mg once + 75 mg daily - Heparin gtt cardiac, repeat INR in am and discontinue if therapeutic - Switched lovastatin to atorvastatin 80 mg - Trending troponin - Monitor on telemetry - Pharmacological stress test in AM Paroxysmal atrial fibrillation on Warfarin - Subtherapeutic - INR 1.71 - Continue warfarin Hypothyroidism, chronic. - Pt is s/p thyroidectomy. TSH elevated at 4.75. Pt may benefit from adjustment of levothyroxine in outpatient setting. - Continue home levothyroxine Fibromyalgia, chronic - Continue home cyclobenzaprine PRN - Continue home gabapentin - Continue home Percocet Depression and anxiety - Continue home clonazepam - Continue home sertraline Lfc-ijhqsin-pxtiozjyx type 2 diabetes. - Diet controlled. BG 90 Other Chronic Conditions Migraine headaches. Hypertension. Dyslipidemia. History of heart block reported in the past. Panic attacks. Osteoarthritis. Syncope. Shingles. Basal cell carcinoma. Thyroid cancer status post thyroidectomy. Bilateral hearing loss. T3 anterior compression fracture. TIA Hard of hearing - Bowel regimen as needed - Antiemetic as needed Patient is admitted under observation status with expected length of stay less than 2 midnights due to severity of presenting symptoms, risk of adverse event, and complexity of treatment plan. Pain Evaluation: Adequate Pain Control VTE Prophylaxis: Other Resuscitation Status: CPR: Attempt Resuscitation Attending Statement The patient was seen and examined together with house staff on 05/10/2017 and I agree with the history, exam and plan as outlined in the note above. Jong Buenrostro May 10, 2017 01:39 Stephanie Montoya DO May 10, 2017 04:34
[2017-05-10] MEDS: Sodium Chloride LOK Flush 10 mL Syringe IVFLUSH SCH ×4 (01:52→23:34)
--- NOTE | 2017-05-10 02:52 | NUR ---
Chest Pain pt had an episode of chest pain accompanied by nausea. Describes pain as tight. Administered NTG SL and notified MD. 12-lead taken and read by MD. Started on cardiac heparin drip running 1000units/hr. Nitro paste administered pt's left chest. Administered zofran PRN for nausea. Pt states that she's feeling much better. Denies n/v or abd discomfort. Will continue to monitor. VSS and has been afebrile.
[2017-05-10] MEDS: Lactated Ringer's 1,000 ML IV SCH ×2 (04:41→14:41)
[2017-05-10 06:18] LABS: BASOPHILS % (AUTO) 0.6 % (0-3); EOSINOPHILS % (AUTO) 3.8 % (0-5); MONOCYTES % (AUTO) 5.9 % (4-12); Mean Corpuscular Hemoglobin 29.2 pg (27.0-35.0); NEUTROPHILS % (AUTO) 52.7 % (40-74); Platelet Count 228 bil/L (150-400)
[2017-05-10 06:47] LABS: INR 1.57 ratio
--- NOTE | 2017-05-10 07:18 | PCM.PHAPRO ---
Progress Chest pain, nausea, diaphoresis Date May 10-May INR 1.71 1.57 INR change -0.14 Warf Dose 6 MG 6 MG Lucio Simmons Pharm.D May 10, 2017 07:17
--- NOTE | 2017-05-10 10:00 | NUR ---
Case Management: RANGEL and Medicare Part D Pamphlet delivered and explained to patient. Signed original placed in paper chart. Copy left at bedside. Christal Hutchins RN
[2017-05-10] MEDS: 0.9% Sodium Chloride 1,000 ML IV SCH (10:01)
--- NOTE | 2017-05-10 10:45 | NUR ---
HEPARIN Pt going down for stress test. CVL requesting pt to be SL for procedure. MD consulted, order/communication for Heparin to be stopped for procedure. Heparin stopped at 1045. APTT draws to be adjusted to restart once back on floor.
--- NOTE | 2017-05-10 10:55 | NUR ---
Pt off floor for stress test Addendum: 05/10/17 at 1058 by SHIVAM RUST RN Pt premedicated for anxiety with IV ativan.
--- NOTE | 2017-05-10 14:02 | DRSVH ---
[facility] [address] [place] [address] Echocardiogram Report Name: AJITH CANAS MStudy Date: 02/2017 Height: 69 in Hospital Exam Location: [facility] Weight: 250 lb Gender: Female BSA: 2.3 m2 : 1940 Age: 77 yrs BP: 95/64 mmHg Reason For Study: CHEST PAIN Ordering Physician: BRIANNE BUTTS Performed By: Pablo Ocampo Referring Physician: Emma Crump Interpretation Summary Left ventricular systolic function is normal without focal wall motion abnormalities with the ejection fraction visually estimated to be 60-65%. The left ventricle is normal in size with wall thickness that is borderline increased. Assessment of diastolic parameters indicates a relaxation abnormality of the left ventricle, consistent with normal filling pressures. There has been no significant change since the previous study. The right ventricle is at the upper limits of normal in size but appears slightly smaller compared to the previous study. Right ventricular systolic function is at the lower limits of normal and unchanged. The right ventricular systolic pressure is estimated at 34 mmHg assuming a right atrial pressure of 3 mm Hg, and is likely unchanged compared to the previous study. The left atrial size is normal and the right atrium is moderately dilated. The right atrium has significantly increased in size since the prior echo exam. There is moderate mitral regurgitation that is slightly more prominent compared to the previous study and moderate to severe tricuspid regurgitation that appears significantly more prominent compared to the previous study. There is mild aortic valve sclerosis with mild to moderate aortic regurgitation that appears unchanged compared to the previous study and there is no aortic valve stenosis. The ascending aorta is moderate-severely enlarged but is unchanged compared to the previous study. The aortic arch is mildly enlarged and appears smaller compared to the previous study. Procedure: A two-dimensional transthoracic echocardiogram with color flow and Doppler was performed. The study quality was technically good. Comparison is made with the echocardiogram of 09/02/16. The patient was in normal sinus rhythm during the exam. The patient was bradycardic with heart rate of 44-72 beats per minute. Left Ventricle: The left ventricle is normal in size. Left ventricular wall thickness is borderline increased. There is mild proximal septal thickening noted. There is no echo evidence for significant left ventricular outflow tract obstruction. Left ventricular systolic function is normal without focal wall motion abnormalities. The ejection fraction is estimated to be 60-65%. Assessment of diastolic parameters indicates a relaxation abnormality of the left ventricle, consistent with normal filling pressures. There has been no significant change since the previous study. Right Ventricle: The right ventricle is at the upper limits of normal in size. Right ventricular systolic function is at the lower limits of normal. This is slightly smaller compared to the previous study. Atria: The left atrial size is normal. The right atrium is moderately dilated. The right atrium has significantly increased in size since the prior echo exam. The interatrial septum is intact with no evidence for an atrial septal defect. Mitral Valve: There is mild mitral annular calcification. The mitral valve leaflets appear normal. There is no evidence of stenosis, fluttering, or prolapse. There is moderate mitral regurgitation. This is slightly more prominent compared to the previous study. Aortic Valve: The aortic valve is trileaflet. The aortic valve opens well. There is mild aortic valve sclerosis. There is no aortic valve stenosis. There is mild to moderate aortic regurgitation. This is unchanged compared to the previous study. Tricuspid Valve: The tricuspid valve is normal in structure and function. There is moderate to severe tricuspid regurgitation. This is significantly more prominent compared to the previous study. The right ventricular systolic pressure is estimated at 34 mmHg assuming a right atrial pressure of 3 mm Hg. This is unchanged compared to the previous study. Pulmonic Valve: The pulmonic valve is normal in structure and function. There is trace pulmonic regurgitation. Great Vessels: The aortic root is normal size. The ascending aorta is moderate-severely enlarged. This is unchanged compared to the previous study. The aortic arch is mildly enlarged. This is smaller compared to the previous study. The pulmonary artery is normal size. The IVC is of normal diameter and collapses greater than 50% with a sniff. This suggests a low right atrial pressure of 3 mm Hg. Pericardium/ Pleura There is no pericardial effusion. There is no pleural effusion. MMode/2D Measurements & Calculations LVIDd: 5.0 cm LA dimension: 4.1 cm RA long axis Ao root diam LVIDs: 2.3 cm FS: 53.1 % LA A2 area: 21.2 cm RA area Aortic Jxn: 3.2 cm EPSS: 0.00 cm LA A4 area: 28.8 cm asc Aorta Diam IVSd: 1.1 cm LA length (vol) : 29.7 cm LVPWd: 1.1 cm RA vol Ao Arch Diam (Prox LA vol: 71.0 ml : 105.ml Trans): 3.1 cm LA vol index RA : 46.5 mm2 IVC diam: 1.4 cm LV carmichael. diameter/BSA LV sys. diameter/BSA RVD1 (basal) RVD2 (mid): 4.7 cm (cm/m^2): 2.2 (cm/m^2): 1.0 Doppler Measurements & Calculations Ao V2 max: 124.9 cm/sec MV E max torres MV E/A: 0.99 TR max torres Ao max P.2 mmHg : 67.4 cm/sec Med Peak E' Torres : 276.7 cm/sec Ao mean P.8 mmHg MV A max torres TR max PG AI P1/2t: 1150 msec : 68.2 cm/sec E/E' med: 11.1 : 30.6 mmHg AI dec slope Pulm A Revs Dur PA V2 max : 62.8 cm/sec : 106.4 cm/s2c MV A dur: 0.17 sec PA mean PG : 0.93 mmHg PA Accel Time : 0.12 sec MV dec time: 0.26 sec Ao V2 mean MR flow rate PA V2 mean : 93.9 cm/sec : 46.3 cm/sec Ao V2 VTI : 79.7 cm3/sec PA pr(Accel) : 34.3 cm MR PISA radius : 24.2 mmHg Pulm A Steve Dur - MV A Dur: -0.00 msec Reading Physician:02:01 PM
--- NOTE | 2017-05-10 15:05 | NUR ---
Social Work-initial assessment/readiness for discharge: Data:See initial assessment. Pt is a 77 y/o female who was admitted on 05/09/17 for unstable angina per H&P. Pt's insurance is [employer] and PCP is RADHA Koehler. EMR Reviewed. SW met with pt at bedside to discuss discharge planning, SW Role explained. Pt is alert and oriented x3. Pt resides at home alone on [facility] where she remains independent with basic ADLS. Pt uses either a fww or electric cart at baseline and does drive. Pt states she is currently open with [facility] for RN,PT, and OT services, SW to await MD order to contact [facility]. Pt has no SNF history. Pt has no [facility] care insurance or VA benefits. SW discussed DPOA/ advanced directive, pt confirms she has completed this, SW encouraged a copy to be brought in. SW provided pt with discharge planning checklist booklet and encouraged pt to call SW with any questions. SW provided phone number and plan on white board in room. Pt to benefit from resume orders.Pt confirms that her granddaughter Terese will be her transport home at discharge. SW will continue to follow. Assessment:Pt who is open with services. Plan:Pt to discharge home when medically stable. SW to await MD orders for resume services prior to contacting [facility]. SW will continue to follow. EVELYN Morris Addendum: 05/10/17 at 1513 by TRACEY CURRIE SS Amended: Links added.
--- NOTE | 2017-05-10 17:20 | PCM.PNMED ---
Subjective Date of Service May 10, 2017 Subjective Denies any new issues/complaints. Exam Vital Signs Vital Sign - Last Date Time Temp Pulse Resp B/P Pulse Ox O2 Delivery O2 Flow Rate FiO2 05/10/17 13:55 35.8 54 16 133/77 90 Room Air 05/10/17 04:30 2.00 Intake and Output 05/09/17 05/09/17 05/10/17 Cumulative From/Thru 15:00 23:00 07:00 05/09/17 15:02 - 05/10/17 05:59 Intake Total 1000 ml 300 ml 1300 ml Output Total 700 ml 700 ml Balance 1000 ml -400 ml 600 ml Intake Oral 300 ml 300 ml IV Total 1000 ml 1000 ml Output Urine Total 700 ml 700 ml # Voids 1 1 General: Alert, Cooperative, No Acute Distress Head: Normal Eyes: Scleral Anicteric Nose: Mucous Membr Moist/[place] Mouth: Mucous Membr Moist/[place] Neck: Supple Chest & Lungs: Chest Wall Normal, Clear to auscultation & percussion Cardiovascular: Regular Rate/Rhythm Pulses: NL carotid, radial, femoral, DP, PT Abdomen: Non-tender, Non-distended, Normoactive bowel tones, Soft Extremities: No cyanosis/clubbing/edma bilat Neurological: Grossly Neurologically Intact, Normal Speech IVs and Medications Medications Reviewed: Medications were reviewed in detail Lab and Diagnostics Result Diagram: 05/10/1755 05/10/17 0555 Assessment & Plan 77 year old female with a hx of HTN, DM II and afib on Coumadin who presented with chest pain radiating to her left shoulder and left jaw. Admitted for unstable angina. # Acute chest pain. Present on admission. Resolved - Chest pain improved with nitro per admission note - Currently chest pain free - ACS ruled out with negative Trop x 3 - Plan was for stress test today but per cardiology (Dr. Lu), given patient noted to have first degree hear block, will stop her Atenolol and followup repeat EKG in AM and if bradycardia and heart block - resolved then consider stress test in am. - Nitro paste 1 inch - Continue home aspirin - Continue Plavix started on admission - Heparin gtt stopped given no further chest pain at this time - Switched lovastatin to atorvastatin 80 mg - Monitor on telemetry - Pharmacological stress test in AM may need to be reordered - Followup Echo # Paroxysmal atrial fibrillation on Warfarin - Subtherapeutic - INR 1.71 - Continue warfarin and followup INR - Stop SC heparin when INR therapeutic # Hypothyroidism, chronic. - Pt is s/p thyroidectomy. TSH elevated at 4.75. Pt may benefit from adjustment of levothyroxine in outpatient setting. - Continue home levothyroxine # Fibromyalgia, chronic - Continue home cyclobenzaprine PRN - Continue home gabapentin - Continue home Percocet # Depression and anxiety. Stable - Continue home clonazepam - Continue home sertraline # Xbi-[id number] type 2 diabetes. - Diet controlled. BG 90 - ISS Other Chronic Conditions Migraine headaches. Hypertension. Dyslipidemia. History of heart block reported in the past. Panic attacks. Osteoarthritis. Syncope. Shingles. Basal cell carcinoma. Thyroid cancer status post thyroidectomy. Bilateral hearing loss. T3 anterior compression fracture. TIA Hard of hearing Dispo: 1-2 days pending further cardiac workup VTE Prophylaxis: Other VTE Mechanical Devices: Intermittant Pneumatic CD Resuscitation Status: CPR: Attempt Resuscitation Corey Wills May 10, 2017 17:20
--- NOTE | 2017-05-10 19:30 | NUR ---
Mentation Morning assessment found pt to be A/Ox3, no deficits but slightly disoriented- having a hard time forming complete sentences, word searching. Around 1800 found pt to have increased difficulty speaking, word searching, and occ using the wrong words. Pt reported having some visual blurriness that comes and goes and feeling more confused. Pt was using her computer and stated she was having a hard time typing. BP 124/76, Blood glucose 107. Equal package checker/arm/leg strength, no fascial deficits or tongue deviation. No arm droop. Paged, up to room to evaluate. At that time pt confusion and speech has improved. Continuing to monitor for potential CVA.
[2017-05-11 00:38] VITALS: BP 106/73; PULSE 56; RESP 18; O2SAT 92
[2017-05-11 05:20] VITALS: BP 103/69; PULSE 55; RESP 20; O2SAT 92
--- NOTE | 2017-05-11 05:41 | NUR ---
Mentation Pt rested through the night with no complaints of chest pain or discomfort, denies SOB, n/v. Alert and oriented. No neuro deficits. Equal licensed direct entry midwife/arm/leg strength. No tongue deviation or facial/arm droop. Pt denies difficulty with speech/word searching. Reports, "feeling better." Call light within reach, using appropriately. Frequent rounding in place. Pleasant and cooperative with care.
[2017-05-11 07:44] LABS: INR 1.56 ratio
[2017-05-11] MEDS ORDERED: CHOL500050 PO (08:06)
[2017-05-11 09:02] VITALS: BP 126/79; PULSE 67; RESP 18; O2SAT 92
[2017-05-11] MEDS: Sodium Chloride LOK Flush 10 mL Syringe IVFLUSH SCH (09:33)
[2017-05-11 10:02] VITALS: PULSE 65
--- NOTE | 2017-05-11 11:06 | PCM.DIMED ---
Anabell Quiros DO 05/11/17 1106: Discharge Instructions Date of Service May 11, 2017 Dates of Hospitalization May 09, 2017 at 18:37 Discharge Diagnosis Discharge Diagnosis # Acute chest pain. Present on admission. Resolved # Paroxysmal atrial fibrillation on Warfarin # Hypothyroidism, chronic. # Fibromyalgia, chronic # Depression and anxiety. Stable # [id number]-xlxyrbzhq type 2 diabetes. Other Chronic Conditions Migraine headaches. Hypertension. Dyslipidemia. History of heart block reported in the past. Panic attacks. Osteoarthritis. Syncope. Shingles. Basal cell carcinoma. Thyroid cancer status post thyroidectomy. Bilateral hearing loss. T3 anterior compression fracture. TIA Hard of hearing Medication Instructions Additional med instructions Please stop taking her atenolol. This has decreased her heart rate. This medication may be restarted at a later time by her primary care doctor or your weapons officer. Until you are seen in follow-up by her primary care doctor do not take atenolol. Diet Discharge Diet: Diabetic Activity Discharge Activity: Home Health Phyical Therapy Call your provider Call your provider for: Chest pain Patient Instructions Patient Instructions Please be sure to follow-up with the primary care doctor within 1 week. We will discuss your anxiety medication and pain medications as that may be contributing to your slowed thinking. We were unable to complete a cardiac stress test during this hospitalization because of your slow heart rate. You may need to undergo a cardiac stress test at a later time once her heart rate improved.. Follow-up Provider: Emma Crump Follow-up with PCP in: 1 week Albert Toussaint MD 05/11/17 1555: Discharge Instructions Attending's Statement Patient was seen and examined with house staff. Agree with all attached documentation. Anabell Quiros DO May 11, 2017 11:06 Albert Toussaint MD May 11, 2017 15:55
--- NOTE | 2017-05-11 11:26 | NUR ---
Social Work-readiness for discharge: data:EMR reviewed. Pt is on day 2 of hospitalization for unstable angina per H&P. Pt is not medically stable anticipate later today or tomorrow. MD order received for resume services. EFRAIN spoke with Óscar Levy from [facility] who confirms pt is open with RN,PT, and OT services, access provided. Pt will need resume HH orders at discharge. Pt's family to provide transport home. SW will continue to follow. Assessment:Pt who is independent at baseline. Plan:Pt to discharge home when medically stable via POV. Pt will need resume HH orders at discharge. Pt's family to provide transport home. SW will continue to follow. EVELYN Morris
--- NOTE | 2017-05-11 11:45 | PCM.PHAPRO ---
Progress Chest pain, nausea, diaphoresis WARFARIN DOSING PER PHARMACY Date -May 10-May 11-May INR 1.71 1.57 1.56 INR change -0.14 -0.01 Warf Dose 6 MG 6 MG 6 mg Of note: heparin drip was stopped Pharmacy will continue to follow Bridget Kimball PharmD May 11, 2017 11:45
--- NOTE | 2017-05-11 12:04 | NUR ---
Social Work-discharge: Data:EMR Reviewed. Pt is on day 2 of hospitalization for unstable angina per H&P. Pt is medically stable for discharge. EFRAIN informed Óscar Levy with [facility] that pt is discharging and provided him with resume HH orders. Pt's family to provide transport home.All updated and agreeable to plan. Assessment:Pt who would benefit from resume HH. Plan:Pt to discharge home today via POV. Resume HH orders provided to [facility]. All updated and agreeable to plan. EVELYN Morris
--- NOTE | 2017-05-11 12:20 | NUR ---
Evaluation completed. Please go to "Notes" then click on "Assessments and Notes" (bottom left corner of screen). Then select appropriate discipline tab on top of screen.
--- NOTE | 2017-05-11 12:47 | NUR ---
Discharge Reviewed discharge paperwork, care notes and medications with pt -disclaimer signed. IV DCd intact, tele removed, all belongings with pt. Pt escorted out of hospital in , transferred to car safely. Pt reports to have assistive devices at home for use. Pt denies pain and SOB. No s/sx of distress. Leaving with daughter who is driving pt home.
--- NOTE | 2017-05-11 17:01 | PCM.DC.MED ---
Discharge Summary Date of Service May 11, 2017 Dates of Hospitalization Date of Hospital Admission May 09, 2017 at 18:37 Date of Discharge: May 11, 2017 Providers: Admitting Physician: Corey Wills Primary Care Physician: Emma Crump Attending Physician: Corey Wills Diagnosis at Time of Discharge Diagnosis at Time of Discharge # Acute chest pain. Present on admission. Resolved # Paroxysmal atrial fibrillation on Warfarin # Hypothyroidism, chronic. # Fibromyalgia, chronic # Depression and anxiety. Stable # Cxt-[id number] type 2 diabetes. Other Chronic Conditions Migraine headaches. Hypertension. Dyslipidemia. History of heart block reported in the past. Panic attacks. Osteoarthritis. Syncope. Shingles. Basal cell carcinoma. Thyroid cancer status post thyroidectomy. Bilateral hearing loss. T3 anterior compression fracture. TIA Hard of hearing Consultations Cardiology Brief History From Dr. Buenrostro's H and P: "Pt is a 77 year old female with a hx of HTN, DM II and afib on Coumadin who presented with chest pain radiating to her left shoulder and left jaw. She describes it as a 9/[address] across her chest onset at 1345 today. Pt saw her PCP today for a routine checkup , but then began having the chest pain just before her appointment. She was noted to be hypotensive in the clinic, and was sent to the ED. Associated symptoms include nausea and diaphoresis. Denies edema, palpitations, fever, chills, vomiting, SOB, abdominal pain, bloody urine, vision changes, headache, dysuria, focal weakness, speech changes, or any other symptoms at this time. She took a Nitro at home with some relief prior to arrival but the pain began to gradually worsen. On admission, she states the chest pain, diaphoresis, and shortness of breath had mostly resolved. She states she has had dizziness and falls over the last year, and the dizziness had worsened over the last 1-2 days. On admission, HR was 55, BP was 144/70, O2 93 on room air. CBC and CMP were normal. Troponin <0.01. TSH 4.75. UA negative. CXR showed no acute cardiopulmonary process. PCP: Marina Crump" Hospital Course 77 year old female with a hx of HTN, DM II and afib on Coumadin who presented with chest pain radiating to her left shoulder and left jaw. Admitted for unstable angina. # Acute chest pain. Present on admission. Resolved - Chest pain improved with nitro per admission note - Currently chest pain free - ACS ruled out with negative Trop x 3 - Plan was for stress test but per cardiology (Dr. Lu), given patient noted to have first degree hear block, we stopped her Atenolol and followup repeat EKG in AM and if bradycardia and heart block. Patient remained and first -degree AV block so the stress test was canceled. She will need to do an outpatient stress test once her first-degree AV block resolves - resolved then consider stress test in am. - Nitro paste 1 inch - Continued home aspirin - Continued Plavix started on admission - Heparin gtt stopped given no further chest pain - Switched lovastatin to atorvastatin 80 mg - Monitored on telemetry -Echo did not show any significant cardiac pathology # Paroxysmal atrial fibrillation on Warfarin - Subtherapeutic - INR 1.71 - Continued warfarin and followup INR # Hypothyroidism, chronic. - Pt is s/p thyroidectomy. TSH elevated at 4.75. Pt may benefit from adjustment of levothyroxine in outpatient setting. - Continued home levothyroxine # Fibromyalgia, chronic - Continued home cyclobenzaprine PRN - Continued home gabapentin - Continued home Percocet # Depression and anxiety. Stable - Continued home clonazepam - Continued home sertraline # Cae-dkzdzph-[id number] type 2 diabetes. - Diet controlled. BG 90 - ISS Other Chronic Conditions Migraine headaches. Hypertension. Dyslipidemia. History of heart block reported in the past. Panic attacks. Osteoarthritis. Syncope. Shingles. Basal cell carcinoma. Thyroid cancer status post thyroidectomy. Bilateral hearing loss. T3 anterior compression fracture. TIA Hard of hearing Dispo: 1-2 days pending further cardiac workup Exam Vital Signs (Last) Date Time Temp Pulse Resp B/P Pulse Ox O2 Delivery O2 Flow Rate FiO2 05/11/17 10:02 65 05/11/17 09:02 36.8 18 126/79 92 Room Air 05/10/17 04:30 2.00 Exam General: Alert, Cooperative, No Acute Distress Head: Normal Eyes: Scleral Anicteric Nose: Mucous Membr Moist/[place] Mouth: Mucous Membr Moist/[place] Neck: Supple Chest & Lungs: Chest Wall Normal, Clear to auscultation & percussion Cardiovascular: Regular Rate/Rhythm Pulses: NL carotid, radial, femoral, DP, PT Abdomen: Non-tender, Non-distended, Normoactive bowel tones, Soft Extremities: No cyanosis/clubbing/edma bilat Neurological: Grossly Neurologically Intact, Normal Speech Test 05/09/17 16:10 05/09/17 20:10 05/09/17 20:33 05/10/17 02:02 Hold So Top Tube Received (Received) Urine Color Yellow (YELLOW) Urine Appearance Clear (CLEAR,HAZY) Urine pH 5.5 (5.0-8.0) Urine Specific [place] 1.010 (1.003-1.035) Urine Protein Negativemg/dL (NEG,TRACE) Urine Glucose (UA) Negativemg/dL (NEGATIVE) Urine Ketones Negativemg/dL (NEGATIVE) Urine Occult Blood Negative (NEGATIVE) Urine Nitrite Negative (NEGATIVE) Urine Bilirubin Negative (NEGATIVE) Urine Urobilinogen Normalmg/dL (NORMAL) Urine Leukocyte Esterase Negative (NEGATIVE) Urine RBC 0-2/hpf (0-2) Urine WBC 0-5/hpf (0-5) Urine Epithelial Cells Few/hpf (NONE-MOD) Urine Crystals None seen (NONE SEEN) Urine Bacteria Few/hpf (NONE-FEW) Urine Hyaline Casts None/lpf (NONE) Urine Granular Casts None seen (NONE SEEN) Urine Waxy Casts None seen (NONE SEEN) Urine Red Blood Cell Casts None seen (NONE SEEN) Urine White Blood Cell Casts None seen (NONE SEEN) Urine Mucus None seen (None Seen) Urine Trichomonas None seen (NONE SEEN) Urine Yeast None (NONE SEEN) Urinalysis Comment None Urine Culture Reflexed Not indicated Thyroid Stimulating Hormone (TSH) 4.750uIU/mL (0.450-4.500) Troponin T 0.010ug/L (0.0-0.011) Test 05/10/17 05:55 05/11/17 06:10 White Blood Count 8.8th/mm3 (3.8-10.1) Red Blood Count 4.15mil/mm3 (3.90-5.20) Hemoglobin 12.1g/dL (12.0-15.6) Hematocrit 38.2% (35.0-46.0) Mean Corpuscular Volume 92.0fL (81-100) Mean Corpuscular Hemoglobin 29.2pg (27.0-35.0) Mean Corpuscular Hemoglobin Concent 31.7% (32.0-37.0) Red Cell Distribution Width 15.2% (12.3-15.4) Platelet Count 228bil/L (150-400) Neutrophils (%) (Auto) 52.7% (40-74) Lymphocytes (%) (Auto) 36.9% (14-46) Monocytes (%) (Auto) 5.9% (4-12) Eosinophils (%) (Auto) 3.8% (0-5) Basophils (%) (Auto) 0.6% (0-3) Activated Partial Thromboplast Time 96.8sec (22.8-33.0) Total Bilirubin 0.4mg/dL (0.0-1.2) Aspartate Amino Transf (AST/SGOT) 19U/L (0-50) Alanine Aminotransferase (ALT/SGPT) 11U/L (0-32) Alkaline Phosphatase 67U/L (25-165) Total Protein 6.3g/dL (6.4-8.4) Albumin 3.6g/dL (3.4-5.0) Triglycerides Level 153mg/dL (0-149) Cholesterol Level 158mg/dL (100-199) LDL Cholesterol, Calculated 90.400mg/dL (0-99) VLDL Cholesterol 30.600mg/dL HDL Cholesterol 37mg/dL (>39) Cholesterol/HDL Ratio 4.27 (0.0-4.4) Prothrombin Time 16.8sec (8.1-12.5) Prothromb Time International Ratio 1.56ratio Sodium Level 141mEq/L (134-144) Potassium Level 4.2mEq/L (3.5-5.2) Chloride Level 102mEq/L (97-108) Carbon Dioxide Level 25mmol/L (18-29) Blood Urea Nitrogen 20mg/dL (8-27) Creatinine 0.94mg/dL (0.57-1.00) Estimat Glomerular Filtration Rate 83mL/min (>59) Glucose Level 132mg/dL (60-99) Calcium Level 8.5mg/dL (8.5-10.1) Magnesium Level 2.0mg/dL (1.6-2.6) Discharge Medications Discharge Medications Aspirin (Aspirin) 81 Mg Tablet 81 MG PO DAILY Prescribed by: ABLERT BOSS MD Cholecalciferol (Vitamin D3) (Vitamin D) 50,000 Unit Capsule 50,000 UNIT PO WEEKLY (Reported) Clonazepam (Clonazepam) 1 Mg Tab 1 MG PO BID (Reported) Gabapentin (Gabapentin) 300 Mg Capsule 300 MG PO TID (Reported) Levothyroxine (Levothyroxine) 137 Mcg Tablet 137 MCG PO MORNING (Reported) Lovastatin (Lovastatin) 20 Mg Tablet 20 MG PO HS (Reported) Multivitamin (Multi Vitamin Daily) 1 Each Tablet 1 EACH PO DAILY (Reported) Sertraline HCl (Zoloft) 100 Mg Tablet 200 MG PO QAM (Reported) Vitamin E Mixed (Vitamin E) 400 Unit Capsule 400 UNIT PO DAILY (Reported) Warfarin Sodium (Warfarin Sodium) 5 Mg Tablet 5 MG PO DAILY Prescribed by: ALBERT BOSS MD As needed Cyclobenzaprine (Cyclobenzaprine) 10 Mg Tablet 10 MG PO TID PRN PRN Spasm ( Reported) Nitroglycerin SL (Nitrostat) 0.4 Mg Tab.subl 0.4 MG SL Q5MIN PRN PRN For Chest Pain (Reported) oxyCODONE-Acetaminophen 5-325 mg (oxyCODONE-Acetaminophen 5-325 mg) 1 Each Tablet 1 TAB PO Q6H PRN PRN For Pain (Reported) Additional med instructions Please stop taking her atenolol. This has decreased her heart rate. This medication may be restarted at a later time by her primary care doctor or your procurement consultant. Until you are seen in follow-up by her primary care doctor do not take atenolol. Followup Plan Disposition: Home Discharge Diet: Diabetic Discharge Activity: Home Health Phyical Therapy Patient Instructions Please be sure to follow-up with the primary care doctor within 1 week. We will discuss your anxiety medication and pain medications as that may be contributing to your slowed thinking. We were unable to complete a cardiac stress test during this hospitalization because of your slow heart rate. You may need to undergo a cardiac stress test at a later time once her heart rate improved.. Follow-up Provider: Emma Crump Follow-up with PCP in: 1 week Time spent 45 minutes Attending Statement The patient was seen and examined with staff. Agree with all attached documentation. Anabell Quiros DO May 11, 2017 17:01 Albert Boss MD May 12, 2017 10:57
== END 2017-05-11 12:43 | disposition home or self-care (01) ==
LOC: EDUNIT# 15:00 → EDBD 15:00 → SED 15:00 → MPC 18:37
PROVIDERS: ADMIT Internal Medicine; ATTEND Internal Medicine
DX: R07.9 Chest pain, unspecified (principal); I48.0 Paroxysmal atrial fibrillation; E03.9 Hypothyroidism, unspecified; M79.7 Fibromyalgia; F41.8 Other specified anxiety disorders; E11.9 Type 2 diabetes mellitus without complications; I10 Essential (primary) hypertension; E78.5 Hyperlipidemia, unspecified; M19.90 Unspecified osteoarthritis, unspecified site; Z85.828 Personal history of other malignant neoplasm of skin; Z86.73 Personal history of transient ischemic attack (TIA), and cerebral infarction without residual deficits; Z85.850 Personal history of malignant neoplasm of thyroid; Z79.01 Long term (current) use of anticoagulants; Z88.2 Allergy status to sulfonamides; Z88.8 Allergy status to other drugs, medicaments and biological substances; Z79.82 Long term (current) use of aspirin; Z96.653 Presence of artificial knee joint, bilateral
CPT/HCPCS: 36415; 71010; 80048; 80053; 80061; 81000; 83735; 84443; 84484; 85025; 85610; 85730; 93005; 96374; 96375; 97161; 99285; C8929; G0378; G8978; G8979; G8980; J1644; J2060; J2405; J7030